=== PATIENT | female | born 1985 | race American Indian/Alaskan Native ===

== ENCOUNTER 2018-04-16 22:06 | Emergency (ER) | payer SELFPAY | END 2018-04-16 22:49 | disposition left against medical advice (07) | LOC: ED 22:06 ==

== ENCOUNTER 2019-05-15 11:31 | Emergency (ER) | payer SELFPAY ==
[2019-05-15] MEDS ORDERED: SODIUM CHLORIDE 0.9% 1000 ML 1,000 ML IV ONE ×2 (11:45→13:06)
[2019-05-15] MEDS ORDERED: ONDANSETRON 4 MG/2 ML INJ IV ONE ×2 (11:46→13:06)
--- NOTE | 2019-05-15 11:53 | Emergency Department Report ---
ED N/V/D HPI - General Chief complaint: Hyperglycemia Stated complaint: VOMITING Time Seen by Provider: 05/15/19 11:45 Source: patient, EMS Mode of arrival: Stretcher Limitations: No Limitations - History of Present Illness Initial comments: Ms. Clayton is a 34-year-old female with history of insulin-dependent diabetes who presents with nausea vomiting since last night. She denies any pain. She denies fever. She arrived via EMS. MD complaint: nausea, vomiting -: Gradual, Last night Associated Abdominal Pain: No Severity: moderate Consistency: constant Improves with: none Worsens with: none Context: other (History of diabetes) Associated Symptoms: denies other symptoms - Related Data Home Medications Medication Instructions Recorded Confirmed Last Taken Lisinopril [Zestril] 5 mg PO BID 05/15/19 05/15/19 05/13/19 Previous Rx's Medication Instructions Recorded Last Taken Type Promethazine [Phenergan] 25 mg PO Q6HR PRN #10 tab 05/15/19 Unknown Rx Allergies Allergy/AdvReac Type Severity Reaction Status Date / Time No Known Allergies Allergy Unverified 05/15/19 11:55 ED Review of Systems ROS: Stated complaint: VOMITING Other details as noted in HPI Comment: All other systems reviewed and negative Constitutional: denies: fever, malaise Respiratory: denies: cough Cardiovascular: denies: chest pain, palpitations Gastrointestinal: nausea. denies: abdominal pain ED Past Medical Hx - Past Medical History Previous Medical History?: No - Surgical History Past Surgical History?: No - Social History Smoking Status: Never Smoker Substance Use Type: None - Medications Home Medications: Home Medications Medication Instructions Recorded Confirmed Last Taken Type Lisinopril [Zestril] 5 mg PO BID 05/15/19 05/15/19 05/13/19 History Promethazine [Phenergan] 25 mg PO Q6HR PRN #10 tab 05/15/19 Unknown Rx ED Physical Exam - General Limitations: No Limitations General appearance: alert, in no apparent distress - Head Head exam: Present: atraumatic, normocephalic - Eye Eye exam: Present: normal appearance - ENT ENT exam: Present: mucous membranes dry - Neck Neck exam: Present: normal inspection, full ROM - Respiratory Respiratory exam: Present: normal lung sounds bilaterally. Absent: respiratory distress, wheezes, rales, rhonchi - Cardiovascular Cardiovascular Exam: Present: normal rhythm, tachycardia, normal heart sounds. Absent: systolic murmur, diastolic murmur, rubs, gallop - GI/Abdominal GI/Abdominal exam: Present: soft. Absent: distended, tenderness, guarding, rebound - Extremities Exam Extremities exam: Present: normal inspection - Neurological Exam Neurological exam: Present: alert, oriented X3 - Psychiatric Psychiatric exam: Present: normal affect, normal mood - Skin Skin exam: Present: warm, dry, intact, normal color. Absent: rash ED Course Vital Signs 05/15/19 05/15/19 05/15/19 11:40 11:53 12:00 Temperature 98.5 F Pulse Rate 113 H Respiratory Rate Blood Pressure Blood Pressure 143/102 [Left] O2 Sat by Pulse 99 100 Oximetry 05/15/19 05/15/19 05/15/19 12:16 12:30 12:50 Temperature Pulse Rate 114 H 120 H Respiratory 18 16 Rate Blood Pressure Blood Pressure [Left] O2 Sat by Pulse 96 100 97 Oximetry 05/15/19 05/15/19 05/15/19 13:00 13:16 13:30 Temperature Pulse Rate 116 H 115 H 113 H Respiratory 17 15 17 Rate Blood Pressure 165/110 Blood Pressure [Left] O2 Sat by Pulse 99 100 99 Oximetry 05/15/19 05/15/19 05/15/19 13:45 14:00 14:15 Temperature Pulse Rate 113 H 113 H 115 H Respiratory 17 15 19 Rate Blood Pressure 167/114 177/114 166/116 Blood Pressure [Left] O2 Sat by Pulse 100 100 99 Oximetry 05/15/19 05/15/19 05/15/19 14:30 14:45 15:00 Temperature Pulse Rate 115 H 116 H 115 H Respiratory 19 19 20 Rate Blood Pressure 172/119 176/116 162/117 Blood Pressure [Left] O2 Sat by Pulse 99 99 98 Oximetry 05/15/19 05/15/19 15:15 15:30 Temperature Pulse Rate 113 H 114 H Respiratory 16 18 Rate Blood Pressure 180/119 191/118 Blood Pressure [Left] O2 Sat by Pulse 100 99 Oximetry ED Medical Decision Making - Lab Data Result diagrams: 05/15/19 12:15 05/15/19 17:36 Laboratory Results - last 24 hr 04/02/20 04/02/20 04/02/20 11:45 12:10 12:15 WBC 8.6 RBC 5.86 H Hgb 13.5 Hct 42.2 MCV 72 L MCH 23 L MCHC 32 RDW 16.9 H Plt Count 337 Lymph % (Auto) 10.5 L [place] % (Auto) 2.7 Eos % (Auto) 0.0 Baso % (Auto) 0.5 Lymph # 0.9 L [place] # 0.2 Eos # 0.0 Baso # 0.0 Seg Neutrophils % 86.3 H Seg Neutrophils # 7.4 VBG pH Sodium 139 Potassium 3.7 Chloride 100.4 Carbon Dioxide 18 L Anion Gap 24 BUN 16 Creatinine 0.4 L Estimated GFR > 60 BUN/Creatinine Ratio 40 Glucose 292 H POC Glucose 258 H Calcium 9.6 HCG, Qual Urine Color Urine Turbidity Urine pH Ur Specific Volin Urine Protein Urine Glucose (UA) Urine Ketones Urine Blood Urine Nitrite Urine Bilirubin Urine Urobilinogen Ur Leukocyte Esterase Urine WBC (Auto) Urine RBC (Auto) U Epithel Cells (Auto) Urine Bacteria (Auto) Urine Mucus 05/15/19 05/15/19 05/15/19 12:15 13:02 17:02 WBC RBC Hgb Hct MCV MCH MCHC RDW Plt Count Lymph % (Auto) [place] % (Auto) Eos % (Auto) Baso % (Auto) Lymph # [place] # Eos # Baso # Seg Neutrophils % Seg Neutrophils # VBG pH Sodium Potassium Chloride Carbon Dioxide Anion Gap BUN Creatinine Estimated GFR BUN/Creatinine Ratio Glucose POC Glucose 225 H Calcium HCG, Qual Negative Urine Color Yellow Urine Turbidity Cloudy Urine pH 5.0 Ur Specific Volin 1.035 H Urine Protein 100 mg/dl Urine Glucose (UA) >=500 Urine Ketones 80 Urine Blood Mod Urine Nitrite Neg Urine Bilirubin Neg Urine Urobilinogen < 2.0 Ur Leukocyte Esterase Mod Urine WBC (Auto) 3.0 Urine RBC (Auto) 94.0 U Epithel Cells (Auto) 14.0 H Urine Bacteria (Auto) 2+ Urine Mucus 1+ 05/15/19 05/15/19 17:36 17:36 WBC RBC Hgb Hct MCV MCH MCHC RDW Plt Count Lymph % (Auto) [place] % (Auto) Eos % (Auto) Baso % (Auto) Lymph # [place] # Eos # Baso # Seg Neutrophils % Seg Neutrophils # VBG pH 7.393 Sodium 140 Potassium 3.6 Chloride 106.0 Carbon Dioxide 21 L Anion Gap 17 BUN 16 Creatinine 0.4 L Estimated GFR > 60 BUN/Creatinine Ratio 40 Glucose 227 H POC Glucose Calcium 8.6 HCG, Qual Urine Color Urine Turbidity Urine pH Ur Specific Volin Urine Protein Urine Glucose (UA) Urine Ketones Urine Blood Urine Nitrite Urine Bilirubin Urine Urobilinogen Ur Leukocyte Esterase Urine WBC (Auto) Urine RBC (Auto) U Epithel Cells (Auto) Urine Bacteria (Auto) Urine Mucus - Medical Decision Making Mrs. Clayton presents with hyperglycemia nausea vomiting work-up revealed ketonuria anion gap 24 sodium bicarbonate 18 blood glucose 225 after fluid therapy. Bicarbonate increased, anion gap decreased after treatment throughout emergency department. Patient does have needles and insulin to administer her self at home. Prescribed promethazine for nausea vomiting. Asymptomatic hypertensive urgency. Patient did not take her medicine today likely due to nausea Critical care attestation.: If time is entered above; I have spent that time in minutes in the direct care of this critically ill patient, excluding procedure time. ED Disposition Clinical Impression: Hyperglycemia due to diabetes mellitus, Ketosis due to diabetes, Nausea Disposition: DC-01 TO HOME OR SELFCARE Is pt being admited?: No Does the pt Need Aspirin: No Condition: Stable Additional Instructions: Please return to the emergency department if your symptoms worsen. Prescriptions: Promethazine [Phenergan] 25 mg PO Q6HR PRN #10 tab PRN Reason: Nausea Referrals: CASSIDY HAWTHORNE MD [Staff Physician] - 3-5 Days
[2019-05-15 12:39] LABS: Basophils % (Auto) 0.5 % (0.0-1.8); Hematocrit 42.2 % (30.3-42.9); Hemoglobin 13.5 gm/dl (10.1-14.3); Lymphocytes # (Auto) 0.9 K/mm3 (1.2-5.4); Lymphocytes % (Auto) 10.5 % (13.4-35.0); Mean Corpuscular HGB Conc 32 % (30-34); Mean Corpuscular Volume 72 fl (79-97); Monocytes # (Auto) 0.2 K/mm3 (0.0-0.8); Monocytes % (Auto) 2.7 % (0.0-7.3); Platelet Count 337 K/mm3 (140-440); Red Blood Count 5.86 M/mm3 (3.65-5.03); Red Cell Distribution Width 16.9 % (13.2-15.2)
[2019-05-15 12:58] LABS: BUN/Creatinine Ratio 40; Blood Urea Nitrogen 16 mg/dL (7-17); Calcium 9.6 mg/dL (8.4-10.2); Hemolysis Index 11
[2019-05-15 14:21] LABS: Bacteria,Urine 2+ /HPF (Negative); Bilirubin,Urine NEG (Negative); Blood,Urine MOD (Negative); Color,Urine Yellow (Yellow); Mucus,Urine 1+ /HPF; Urobilinogen,Urine < 2.0 mg/dL (<2.0)
[2019-05-15 18:12] LABS: BUN/Creatinine Ratio 40; Blood Urea Nitrogen 16 mg/dL (7-17); Calcium 8.6 mg/dL (8.4-10.2); Hemolysis Index 13
[2019-05-15 19:16] VITALS: BP 170/121
== END 2019-05-15 19:19 | disposition home or self-care (01) ==
LOC: ED 11:31
DX: E13.10 Other specified diabetes mellitus with ketoacidosis without coma (principal); E11.65 Type 2 diabetes mellitus with hyperglycemia; E11.10 Type 2 diabetes mellitus with ketoacidosis without coma
CPT/HCPCS: 36415; 80048; 81001; 82805; 82962; 84703; 85025; 96361; 96374; 96376; 99284; J2405; J7030

== ENCOUNTER 2019-12-20 16:26 | Emergency (ER) | payer SELFPAY ==
--- NOTE | 2019-12-20 17:00 | Event Note ---
ED Screening Note Date of service: 12/20/19 Time: 16:59 ED Screening Note: 34-year-old -[place] female presents to the emergency room for nausea vomiting weakness dizziness and states that her blood sugars have been running high. Patient has diabetes type 2. She is currently followed by diabetic clinic but does not have a primary care provider. This initial assessment/diagnostic orders/clinical plan/treatment(s) is/are subject to change based on patients health status, clinical progression and re- assessment by fellow clinical providers in the ED. Further treatment and workup at subsequent clinical providers discretion. Patient/guardian urged not to elope from the ED as their condition may be serious if not clinically assessed and managed. Initial orders include:
[2019-12-20 17:30] LABS: Basophils # (Auto) 0.1 K/mm3 (0.0-0.1); Basophils % (Auto) 1.3 % (0.0-1.8); Eosinophils # (Auto) 0.3 K/mm3 (0.0-0.4); Eosinophils % (Auto) 4.3 % (0.0-4.3); Hematocrit 39.3 % (30.3-42.9); Hemoglobin 12.5 gm/dl (10.1-14.3); Lymphocytes # (Auto) 2.3 K/mm3 (1.2-5.4); Lymphocytes % (Auto) 29.5 % (13.4-35.0); Mean Corpuscular HGB Conc 32 % (30-34); Mean Corpuscular Volume 73 fl (79-97); Monocytes # (Auto) 0.4 K/mm3 (0.0-0.8); Monocytes % (Auto) 4.8 % (0.0-7.3); Platelet Count 302 K/mm3 (140-440); Red Blood Count 5.37 M/mm3 (3.65-5.03); Red Cell Distribution Width 17.9 % (13.2-15.2)
[2019-12-20 17:46] LABS: HCG Qualitative,Urine Negative (Negative)
[2019-12-20 17:48] LABS: Alanine Aminotransferase 10 units/L (7-56); Albumin 3.8 g/dL (3.9-5); Blood Urea Nitrogen 14 mg/dL (7-17); Calcium 9.5 mg/dL (8.4-10.2); Hemolysis Index 28
[2019-12-20 17:54] LABS: BUN/Creatinine Ratio 35
[2019-12-20 17:55] LABS: Bilirubin,Direct < 0.2 mg/dL (0-0.2)
[2019-12-20] MEDS ORDERED: SODIUM CHLORIDE 0.9% 1000 ML 1,000 ML IV ONE (18:24)
[2019-12-20] MEDS ORDERED: ONDANSETRON 4 MG/2 ML INJ IV ONE (18:24)
--- NOTE | 2019-12-20 18:26 | Emergency Department Report ---
HPI - General Chief Complaint: Nausea/Vomiting/Diarrhea Time Seen by Provider: 12/20/19 18:16 - HPI HPI: This is a 34-year-old female presents to the emergency department from home with a complaint of a 1 week history of nausea and vomiting that has now caused her to have some generalized weakness. The patient also says that her blood sugar has been high despite alleged compliance with her insulin 70/30, which she takes 33 units in the morning and 16 units at night. She is otherwise not taken anything for symptoms prior to presentation. No recent travel or sick contacts at home. No known aggravating or alleviating factors. She denies any fever, abdominal pain, dysuria, vaginal bleeding or discharge, chest pain or shortness of breath. She does not have any primary care physician. ED Past Medical Hx - Past Medical History Previous Medical History?: Yes Hx Hypertension: Yes Hx Diabetes: Yes Additional medical history: Diabetic - Surgical History Past Surgical History?: Yes Hx Appendectomy: Yes Additional Surgical History: Left leg surgery with instrumentation - Social History Smoking Status: Never Smoker Substance Use Type: Prescribed - Medications Home Medications: Home Medications Medication Instructions Recorded Confirmed Last Taken Type Lisinopril [Zestril] 5 mg PO BID 05/15/19 05/15/19 05/13/19 History Promethazine [Phenergan] 25 mg PO Q6HR PRN #10 tab 05/15/19 Unknown Rx Fluconazole (Nf) [Diflucan TAB] 150 mg PO ONCE #1 tablet 06/27/19 Unknown Rx Nitrofurantoin [place]/M-Cryst 100 mg PO Q12HR #14 capsule 06/27/19 Unknown Rx [Macrobid CAP] Ondansetron [Zofran ODT TAB] 4 mg PO Q8HR PRN #15 tab.rapdis 12/20/19 Unknown Rx ED Review of Systems ROS: Stated complaint: N/V Other details as noted in HPI Comment: All other systems reviewed and negative Constitutional: weakness. denies: chills, fever Eyes: denies: eye pain, vision change ENT: denies: ear pain, throat pain Respiratory: denies: cough, shortness of breath Cardiovascular: denies: chest pain, palpitations Gastrointestinal: nausea, vomiting. denies: abdominal pain Genitourinary: denies: dysuria, discharge Musculoskeletal: denies: back pain, arthralgia Skin: denies: rash, lesions Neurological: denies: headache, weakness Physical Exam - Physical Exam Vital Signs: Vital Signs 12/20/19 16:33 Temperature 98.7 F Pulse Rate 114 H Respiratory 18 Rate Blood Pressure 123/104 O2 Sat by Pulse 100 Oximetry Physical Exam: GENERAL: The patient is well-developed well-nourished. HENT: Normocephalic. Atraumatic. Patient has moist mucous membranes. EYES: Extraocular motions are intact. NECK: Supple. Trachea is midline. CHEST/LUNGS: Clear to auscultation. There is no respiratory distress noted. HEART/CARDIOVASCULAR: Regular. There is mild tachycardia. There is no murmur. ABDOMEN: Abdomen is soft, nontender. Patient has normal bowel sounds. SKIN: Skin is warm and dry. NEURO: The patient is awake, alert, and oriented. The patient is cooperative. Normal speech. Cranial nerves II through XII grossly intact. MUSCULOSKELETAL: There is no tenderness or deformity. There is no limitation range of motion. ED Course Vital Signs 12/20/19 16:33 Temperature 98.7 F Pulse Rate 114 H Respiratory 18 Rate Blood Pressure 123/104 O2 Sat by Pulse 100 Oximetry - Reevaluation(s) Reevaluation #1: 12/20/19 22:47 Lab Results 12/20/19 12/20/19 12/20/19 Range/Units 16:52 17:09 17:13 WBC 7.9 (4.5-11.0) K/mm3 RBC 5.37 H (3.65-5.03) M/mm3 Hgb 12.5 (10.1-14.3) gm/dl Hct 39.3 (30.3-42.9) % MCV 73 L (79-97) fl MCH 23 L (28-32) pg MCHC 32 (30-34) % RDW 17.9 H (13.2-15.2) % Plt Count 302 (140-440) K/mm3 Lymph % (Auto) 29.5 (13.4-35.0) % [place] % (Auto) 4.8 (0.0-7.3) % Eos % (Auto) 4.3 (0.0-4.3) % Baso % (Auto) 1.3 (0.0-1.8) % Lymph # (Auto) 2.3 (1.2-5.4) K/mm3 [place] # (Auto) 0.4 (0.0-0.8) K/mm3 Eos # (Auto) 0.3 (0.0-0.4) K/mm3 Baso # (Auto) 0.1 (0.0-0.1) K/mm3 Seg Neutrophils % 60.1 (40.0-70.0) % Seg Neutrophils # 4.8 (1.8-7.7) K/mm3 VBG pH (7.320-7.420) Sodium (137-145) mmol/L Potassium (3.6-5.0) mmol/L Chloride (98-107) mmol/L Carbon Dioxide (22-30) mmol/L Anion Gap mmol/L BUN (7-17) mg/dL Creatinine (0.6-1.2) mg/dL Estimated GFR ml/min BUN/Creatinine Ratio % Glucose (65-100) mg/dL POC Glucose 380 H (70-105) mg/dL Calcium (8.4-10.2) mg/dL Phosphorus (2.5-4.5) mg/dL Magnesium (1.7-2.3) mg/dL Total Bilirubin (0.1-1.2) mg/dL Direct Bilirubin (0-0.2) mg/dL Indirect Bilirubin mg/dL AST (5-40) units/L ALT (7-56) units/L Alkaline Phosphatase (35-129) units/L Total Protein (6.3-8.2) g/dL Albumin (3.9-5) g/dL Albumin/Globulin Ratio % Lipase (13-60) units/L Urine HCG, Qual Negative (Negative) 12/20/19 12/20/19 12/20/19 Range/Units 17:13 17:13 19:50 WBC (4.5-11.0) K/mm3 RBC (3.65-5.03) M/mm3 Hgb (10.1-14.3) gm/dl Hct (30.3-42.9) % MCV (79-97) fl MCH (28-32) pg MCHC (30-34) % RDW (13.2-15.2) % Plt Count (140-440) K/mm3 Lymph % (Auto) (13.4-35.0) % [place] % (Auto) (0.0-7.3) % Eos % (Auto) (0.0-4.3) % Baso % (Auto) (0.0-1.8) % Lymph # (Auto) (1.2-5.4) K/mm3 [place] # (Auto) (0.0-0.8) K/mm3 Eos # (Auto) (0.0-0.4) K/mm3 Baso # (Auto) (0.0-0.1) K/mm3 Seg Neutrophils % (40.0-70.0) % Seg Neutrophils # (1.8-7.7) K/mm3 VBG pH 7.401 (7.320-7.420) Sodium 132 L (137-145) mmol/L Potassium 3.7 (3.6-5.0) mmol/L Chloride 98.1 (98-107) mmol/L Carbon Dioxide 24 (22-30) mmol/L Anion Gap 14 mmol/L BUN 14 (7-17) mg/dL Creatinine 0.4 L (0.6-1.2) mg/dL Estimated GFR > 60 ml/min BUN/Creatinine Ratio 35 % Glucose 332 H (65-100) mg/dL POC Glucose 315 H (70-105) mg/dL Calcium 9.5 (8.4-10.2) mg/dL Phosphorus 3.00 (2.5-4.5) mg/dL Magnesium 1.90 (1.7-2.3) mg/dL Total Bilirubin 0.30 (0.1-1.2) mg/dL Direct Bilirubin < 0.2 (0-0.2) mg/dL Indirect Bilirubin 0.1 mg/dL AST 16 (5-40) units/L ALT 10 (7-56) units/L Alkaline Phosphatase 92 (35-129) units/L Total Protein 7.9 (6.3-8.2) g/dL Albumin 3.8 L (3.9-5) g/dL Albumin/Globulin Ratio 0.9 % Lipase 19 (13-60) units/L Urine HCG, Qual (Negative) Reevaluation #2: 12/20/19 22:47 Vital Signs 12/20/19 12/20/19 16:33 22:02 Temperature 98.7 F Pulse Rate 114 H 102 H Respiratory 18 20 Rate Blood Pressure 123/104 Blood Pressure 150/102 [Right] O2 Sat by Pulse 100 100 Oximetry ED Medical Decision Making - Lab Data Result diagrams: 12/20/19 17:13 12/20/19 17:13 - Medical Decision Making This patient presents with nausea and vomiting and hyperglycemia despite alleged compliance with her insulin. On examination the patient does not appear in any acute distress. Normal sounding heart and lungs to auscultation. She does not have any focal, motor or sensory deficits and her cranial nerves are intact. Patient's vital signs were reassuring throughout her ED course including being afebrile. The labs did show some hyperglycemia with a serum blood sugar of about 330. However she does not appear in diabetic ketoacidosis as there is no elevation in her anion gap. She was given a dose of Zofran, a liter of IV fluid resuscitation, and 5 units of IV insulin. Her blood sugar came down to about 220 on Accu-Chek. The patient was able to pass oral challenge and is feeling improved. She was seen ambulatory in the emergency department and both appears and feels stable. She will be discharged home with Zofran ODT and referrals for primary care physicians and clinics in the area. She will return to the ER with any worsening of her symptoms or with any acute distress. Critical Care Time: No Critical care attestation.: If time is entered above; I have spent that time in minutes in the direct care of this critically ill patient, excluding procedure time. ED Disposition Clinical Impression: Hyperglycemia, Gastroparesis Nausea & vomiting Qualifiers: Vomiting type: unspecified Vomiting Intractability: non-intractable Qualified Code(s): R11.2 - Nausea with vomiting, unspecified Disposition: DC-01 TO HOME OR SELFCARE Is pt being admited?: No Condition: Stable Instructions: Hyperglycemia, Nausea and Vomiting, Adult, Gastroparesis Additional Instructions: Please follow-up with a primary care physician in the next few days. I am giving you multiple referrals for local primary care physicians and clinics. Increase your oral rehydration. Continue with your diabetes medications. Try and stay away from foods that are high in sugar, carbohydrates and starches. Keep a blood sugar log. Return to the emergency department with any worsening of your symptoms, new or concerning symptoms not addressed during this current emergency department visit, or with any acute distress. Prescriptions: Ondansetron [Zofran ODT TAB] 4 mg PO Q8HR PRN #15 tab.rapdis PRN Reason: Nausea Referrals: PRIMARY CARE, [Primary Care Provider] - 2-3 Days CASSIDY HAWTHORNE MD [Staff Physician] - 2-3 Days MOON FAIR MD [Staff Physician] - 2-3 Days KYLE TOLEDO MD [Staff Physician] - 2-3 Days [facility] [Provider Group] - 2-3 Days Time of Disposition: 21:29
[2019-12-20] MEDS ORDERED: INSULIN REGULAR, HUMAN 100 UNIT/ML 3ML VIAL IV SCH (19:00)
[2019-12-20] MEDS ORDERED: INSULIN REGULAR, HUMAN 100 UNITS/1 ML ONE (19:30)
[2019-12-20 22:03] VITALS: BP 150/102
== END 2019-12-20 22:04 | disposition home or self-care (01) ==
LOC: ED 16:26
DX: E11.43 Type 2 diabetes mellitus with diabetic autonomic (poly)neuropathy (principal); K31.84 Gastroparesis; R11.2 Nausea with vomiting, unspecified; I10 Essential (primary) hypertension; E11.65 Type 2 diabetes mellitus with hyperglycemia; Z79.899 Other long term (current) drug therapy; Z98.890 Other specified postprocedural states; Z90.49 Acquired absence of other specified parts of digestive tract
CPT/HCPCS: 36415; 80048; 80076; 81025; 82805; 82962; 83690; 83735; 84100; 85025; 96361; 96374; 96375; 99284; J2405; J7030; J1815

== ENCOUNTER 2020-01-14 12:40 | Emergency (ER) | payer MEDICARE ==
[2020-01-14] MEDS ORDERED: ONDANSETRON 4 MG/2 ML INJ IV ONE (12:55)
[2020-01-14] MEDS ORDERED: SODIUM CHLORIDE 0.9% 1000 ML 1,000 ML IV ONE ×2 (12:55→12:57)
[2020-01-14] MEDS ORDERED: MORPHINE 4 MG/1 ML INJ IV ONE (12:55)
--- NOTE | 2020-01-14 13:00 | Emergency Department Report ---
ED N/V/D HPI - General Stated complaint: HIGH BLOOD SUGAR Time Seen by Provider: 01/14/20 12:55 Source: patient, EMS, old records reviewed Limitations: No Limitations - History of Present Illness Initial comments: Chief complaint: High blood sugar HPI this is a 34-year-old female with history of insulin-dependent diabetes, diabetic gastroparesis hypertension who presents with 1 day of weakness nausea vomiting. Patient admits to being noncompliant with diabetic diet during the holidays. She takes 35 units of 70/30 insulin in the AM. She takes 16 units in the evening. She denies abdominal pain. She has mild headache. Global typical headache dull throbbing. She denies fever, chest pain. She denies hematemesis. Patient received IV fluid via EMS prior to arrival. Patient arrived via EMS. Blood glucose 394 according to EMS. MD complaint: nausea, vomiting -: Gradual, days(s) (1) Description of Vomiting: food contents Associated Abdominal Pain: No Radiation: none Severity: moderate Consistency: constant Improves with: none Worsens with: none Context: other (History of diabetic gastroparesis) Associated Symptoms: headaches - Related Data Home Medications Medication Instructions Recorded Confirmed Last Taken Lisinopril [Zestril] 5 mg PO BID 05/15/19 05/15/19 05/13/19 Previous Rx's Medication Instructions Recorded Last Taken Type Promethazine [Phenergan] 25 mg PO Q6HR PRN #10 tab 05/15/19 Unknown Rx Fluconazole (Nf) [Diflucan TAB] 150 mg PO ONCE #1 tablet 06/27/19 Unknown Rx Nitrofurantoin [place]/M-Cryst 100 mg PO Q12HR #14 capsule 06/27/19 Unknown Rx [Macrobid CAP] Ondansetron [Zofran ODT TAB] 4 mg PO Q8HR PRN #15 tab.rapdis 12/20/19 Unknown Rx Ondansetron [Zofran Odt] 4 mg PO Q8HR PRN #10 tab.rapdis 01/14/20 Unknown Rx Allergies Allergy/AdvReac Type Severity Reaction Status Date / Time metformin Allergy Unknown Verified 01/14/20 13:27 ED Review of Systems ROS: Stated complaint: HIGH BLOOD SUGAR Other details as noted in HPI Comment: All other systems reviewed and negative Constitutional: denies: fever, malaise Respiratory: denies: cough, shortness of breath Gastrointestinal: nausea, vomiting. denies: abdominal pain, diarrhea ED Past Medical Hx - Past Medical History Previous Medical History?: Yes Hx Hypertension: Yes Hx Diabetes: Yes Additional medical history: Diabetic - Surgical History Hx Appendectomy: Yes Additional Surgical History: Left leg surgery with instrumentation - Social History Smoking Status: Never Smoker Substance Use Type: None - Medications Home Medications: Home Medications Medication Instructions Recorded Confirmed Last Taken Type Lisinopril [Zestril] 5 mg PO BID 05/15/19 05/15/19 05/13/19 History Promethazine [Phenergan] 25 mg PO Q6HR PRN #10 tab 05/15/19 Unknown Rx Fluconazole (Nf) [Diflucan TAB] 150 mg PO ONCE #1 tablet 06/27/19 Unknown Rx Nitrofurantoin [place]/M-Cryst 100 mg PO Q12HR #14 capsule 06/27/19 Unknown Rx [Macrobid CAP] Ondansetron [Zofran ODT TAB] 4 mg PO Q8HR PRN #15 tab.rapdis 12/20/19 Unknown Rx Ondansetron [Zofran Odt] 4 mg PO Q8HR PRN #10 tab.rapdis 01/14/20 Unknown Rx ED Physical Exam - General Limitations: No Limitations General appearance: alert, in no apparent distress - Head Head exam: Present: atraumatic, normocephalic - Eye Eye exam: Present: normal appearance - ENT ENT exam: Present: mucous membranes dry, other - Neck Neck exam: Present: normal inspection, full ROM - Respiratory Respiratory exam: Present: normal lung sounds bilaterally. Absent: respiratory distress, wheezes, rales, rhonchi - Cardiovascular Cardiovascular Exam: Present: regular rate, normal rhythm, normal heart sounds. Absent: systolic murmur, diastolic murmur, rubs, gallop - GI/Abdominal GI/Abdominal exam: Present: soft, normal bowel sounds. Absent: distended, tenderness, guarding, rebound - Extremities Exam Extremities exam: Present: normal inspection - Neurological Exam Neurological exam: Present: alert, oriented X3 - Psychiatric Psychiatric exam: Present: normal affect, normal mood - Skin Skin exam: Present: warm, dry, intact, normal color. Absent: rash ED Course Vital Signs 01/14/20 13:49 Temperature 97.6 F Pulse Rate 112 H Respiratory 18 Rate Blood Pressure 151/98 [Left] O2 Sat by Pulse 100 Oximetry ED Medical Decision Making - Lab Data Result diagrams: 01/14/20 13:11 01/14/20 13:11 - Medical Decision Making 1. Hyperglycemia due to dietary indiscretion: Patient did not have evidence of DKA. She received IV fluid therapy as well as regular insulin. Repeat blood sugar 159. 2. Reported nausea vomiting with history of diabetic gastroparesis. Patient did not have vomiting here in the emergency department. Prescribed Zofran 3. Tension headache: Patient declined pain medication. Symptoms were mild. Critical care attestation.: If time is entered above; I have spent that time in minutes in the direct care of this critically ill patient, excluding procedure time. ED Disposition Clinical Impression: Acute hyperglycemia, Diabetic gastroparesis Disposition: - TO HOME OR SELFCARE Is pt being admited?: No Does the pt Need Aspirin: No Condition: Stable Instructions: Diabetes Mellitus Type 2 in Adults (ED) Prescriptions: Ondansetron [Zofran Odt] 4 mg PO Q8HR PRN #10 tab.rapdis PRN Reason: Nausea Referrals: PRIMARY CARE, [Primary Care Provider] - 3-5 Days
[2020-01-14] MEDS ORDERED: INSULIN REGULAR, HUMAN 100 UNIT/ML 3ML VIAL IV ONE (13:25)
[2020-01-14] MEDS ORDERED: INSULIN REGULAR, HUMAN 100 UNITS/1 ML ONE (13:30)
[2020-01-14 13:38] LABS: Basophils % (Auto) 0.5 % (0.0-1.8); Eosinophils % (Auto) 0.6 % (0.0-4.3); Hematocrit 38.3 % (30.3-42.9); Hemoglobin 12.2 gm/dl (10.1-14.3); Lymphocytes # (Auto) 1.5 K/mm3 (1.2-5.4); Lymphocytes % (Auto) 18.7 % (13.4-35.0); Mean Corpuscular HGB Conc 32 % (30-34); Mean Corpuscular Volume 73 fl (79-97); Monocytes # (Auto) 0.4 K/mm3 (0.0-0.8); Monocytes % (Auto) 5.3 % (0.0-7.3); Platelet Count 306 K/mm3 (140-440); Red Blood Count 5.26 M/mm3 (3.65-5.03); Red Cell Distribution Width 18.7 % (13.2-15.2)
[2020-01-14 13:45] LABS: Blood Urea Nitrogen 20 mg/dL (7-17); Calcium 9.3 mg/dL (8.4-10.2); Hemolysis Index 13
[2020-01-14 13:50] VITALS: BP 151/98
[2020-01-14 13:51] LABS: BUN/Creatinine Ratio 33
== END 2020-01-14 16:32 | disposition home or self-care (01) ==
LOC: ED 12:40
DX: E11.65 Type 2 diabetes mellitus with hyperglycemia (principal); E11.43 Type 2 diabetes mellitus with diabetic autonomic (poly)neuropathy; K31.84 Gastroparesis; I10 Essential (primary) hypertension; Z98.890 Other specified postprocedural states; Z79.899 Other long term (current) drug therapy; Z88.8 Allergy status to other drugs, medicaments and biological substances
CPT/HCPCS: 36415; 80048; 82805; 82962; 85025; 96361; 96374; 96375; 99284; J2405; J7030; J1815; J2270

== ENCOUNTER 2020-02-19 18:20 | Emergency (ER) | payer MEDICARE ==
[2020-02-19 18:26] VITALS: BP 152/96
[2020-02-19] MEDS ORDERED: KETOROLAC 30 MG/1 ML INJ IV ONE (18:39)
[2020-02-19] MEDS ORDERED: ONDANSETRON 4 MG/2 ML INJ IV ONE ×2 (18:39→20:05)
[2020-02-19] MEDS ORDERED: SODIUM CHLORIDE 0.9% 1000 ML 1,000 ML IV ONE (18:39)
--- NOTE | 2020-02-19 18:41 | Emergency Department Report ---
ED Abdominal Pain HPI - General Chief Complaint: Abdominal Pain Stated Complaint: ABDOMINAL PAIN Time Seen by Provider: 02/19/20 18:30 Source: patient Mode of arrival: Ambulatory Limitations: No Limitations - History of Present Illness Initial Comments: 34 yr old female with pmhx of type 1 DM, DM gastroparesis and HTN presents to ED via EMS with c/o right flank pain. She states her symptoms started about 3 days ago. She describes it as an intermittent, sharp pain that non radiating. She states its sometimes worse with cough and when she moves. She reports associated urinary frequency, constipation (last nl BM was sunday), nausea and vomiting. She denies any fever, chills, chest pain SOB, dysuria, hematuria, or any other associated symptoms. MD Complaint: flank pain (Right flank pain) -: Gradual, days(s) (4) Location: R flank Radiation: none Migration to: no migration Severity: moderate Quality: sharp Consistency: intermittent Improves With: nothing Worsens With: other (sometimes cough, sometimes movement) Associated Symptoms: nausea, vomiting - Related Data Home Medications Medication Instructions Recorded Confirmed Last Taken Lisinopril [Zestril] 5 mg PO BID 05/15/19 05/15/19 05/13/19 Previous Rx's Medication Instructions Recorded Last Taken Type Promethazine [Phenergan] 25 mg PO Q6HR PRN #10 tab 05/15/19 Unknown Rx Fluconazole (Nf) [Diflucan TAB] 150 mg PO ONCE #1 tablet 06/27/19 Unknown Rx Nitrofurantoin [place]/M-Cryst 100 mg PO Q12HR #14 capsule 06/27/19 Unknown Rx [Macrobid CAP] Ondansetron [Zofran Odt] 4 mg PO Q8HR PRN #10 tab.rapdis 01/14/20 Unknown Rx Acetaminophen/Codeine [Tylenol 1 tab PO Q4HR PRN #12 tablet 02/19/20 Unknown Rx /Codeine # 3 tab] Ondansetron [Zofran ODT TAB] 4 mg PO Q8HR PRN #15 tab.rapdis 02/19/20 Unknown Rx Allergies Allergy/AdvReac Type Severity Reaction Status Date / Time No Known Allergies Allergy Unverified 02/19/20 18:22 ED Review of Systems ROS: Stated complaint: ABDOMINAL PAIN Other details as noted in HPI Comment: All other systems reviewed and negative Constitutional: denies: chills, fever ENT: denies: ear pain, throat pain Respiratory: denies: cough, shortness of breath, wheezing Cardiovascular: denies: chest pain, palpitations, dyspnea on exertion Gastrointestinal: nausea, vomiting, other (right flank pain ) Genitourinary: frequency Musculoskeletal: denies: back pain Neurological: denies: headache, weakness, paresthesias Psychiatric: denies: anxiety, depression Hematological/Lymphatic: denies: easy bleeding, easy bruising ED Past Medical Hx - Past Medical History Hx Hypertension: Yes Hx Diabetes: Yes Additional medical history: Diabetic - Surgical History Hx Appendectomy: Yes Additional Surgical History: Left leg surgery with instrumentation - Social History Smoking Status: Never Smoker Substance Use Type: None - Medications Home Medications: Home Medications Medication Instructions Recorded Confirmed Last Taken Type Lisinopril [Zestril] 5 mg PO BID 05/15/19 05/15/19 05/13/19 History Promethazine [Phenergan] 25 mg PO Q6HR PRN #10 tab 05/15/19 Unknown Rx Fluconazole (Nf) [Diflucan TAB] 150 mg PO ONCE #1 tablet 06/27/19 Unknown Rx Nitrofurantoin [place]/M-Cryst 100 mg PO Q12HR #14 capsule 06/27/19 Unknown Rx [Macrobid CAP] Ondansetron [Zofran Odt] 4 mg PO Q8HR PRN #10 tab.rapdis 01/14/20 Unknown Rx Acetaminophen/Codeine [Tylenol 1 tab PO Q4HR PRN #12 tablet 02/19/20 Unknown Rx /Codeine # 3 tab] Ondansetron [Zofran ODT TAB] 4 mg PO Q8HR PRN #15 tab.rapdis 02/19/20 Unknown Rx ED Physical Exam - General Limitations: No Limitations General appearance: alert - Head Head exam: Present: atraumatic, normocephalic, normal inspection - Eye Eye exam: Present: normal appearance, PERRL, EOMI Pupils: Present: normal accommodation - Neck Neck exam: Present: normal inspection. Absent: meningismus - Respiratory Respiratory exam: Present: normal lung sounds bilaterally. Absent: respiratory distress - Cardiovascular Cardiovascular Exam: Present: regular rate, normal rhythm, normal heart sounds - GI/Abdominal GI/Abdominal exam: Present: soft. Absent: tenderness - Back Exam Back exam: Present: normal inspection, CVA tenderness (R) (mild ) - Neurological Exam Neurological exam: Present: alert, oriented X3, CN II-XII intact, normal gait - Psychiatric Psychiatric exam: Present: normal affect, normal mood - Skin Skin exam: Present: intact ED Course Vital Signs 02/19/20 02/19/20 18:25 21:42 Temperature 98.0 F Pulse Rate 115 H Respiratory 18 16 Rate Blood Pressure 152/96 O2 Sat by Pulse 100 Oximetry ED Medical Decision Making - Lab Data Result diagrams: 02/19/20 19:21 02/19/20 19:21 - Radiology Data Patient: LINDA MARTINEZ MR#: [id number] : 1985 Acct:[id number] Age/Sex: 34 / F ADM Date: 02/19/20 Loc: ED Attending Dr: Ordering Physician: DIONICIO GATICA Date of Service: 02/19/20 Procedure(s): CT abdomen pelvis wo con Accession Number(s): [id number] cc: DIONICIO GATICA CT OF THE ABDOMEN AND PELVIS WITHOUT CONTRAST INDICATION / CLINICAL INFORMATION: Right flank pain. TECHNIQUE: All CT scans at this location are performed using CT dose reduction for ALARA by means of automated exposure control. COMPARISON: None available. FINDINGS: ABDOMEN: There is a 1 mm nonobstructive calculus in the lower pole of the left kidney. I see no evidence of hydronephrosis, perinephric soft tissue stranding or renal mass. There is a 2 cm calculus in the gallbladder fundus. The gallbladder is normal in size without wall thickening or bile duct dilatation. The liver, spleen, pancreas, adrenal glands and bowel are normal no adenopathy is seen. The lung bases are clear. PELVIS: The distal ureters and urinary bladder are normal. The uterus and adnexal regions are unremarkable. I see no evidence of diverticulitis or appendicitis. No abnormal mass or fluid collection is seen. There is no evidence of hernia. No acute osseous abnormality is seen. IMPRESSION: 1. [address] evidence of acute cholecystitis. 2. Tiny nonobstructive left renal calculus. Signer Name: Parker Rosado MD Signed: 02/19/2020 8:43 PM Workstation Name: [id number] Transcribed By: RT Dictated By: Parker Rosado MD Electronically Authenticated By: Parker Rosado MD Signed Date/Time: 02/19/202042 DD/ 37 TD/TT: Patient: LINDA MARTINEZ MR#: [id number] : 1985 Acct:[id number] Age/Sex: 34 / F ADM Date: 02/19/20 Loc: ED Attending Dr: Ordering Physician: DIONICIO GATICA Date of Service: 02/19/20 Procedure(s): XR chest routine 2V Accession Number(s): [id number] cc: DIONICIO GATICA Fluoro Time In Minutes: CHEST 2 VIEWS INDICATION / CLINICAL INFORMATION: Abdominal pain radiating to the right flank starting yesterday. Nausea and vomiting. COMPARISON: None available. FINDINGS: SUPPORT DEVICES: None. HEART / MEDIASTINUM: The heart size and pulmonary vasculature are normal. LUNGS / PLEURA: No significant pulmonary or pleural abnormality. No pneumothorax. ADDITIONAL FINDINGS: The visualized upper abdomen is unremarkable. IMPRESSION: No acute findings. Signer Name: Parker Rosado MD Signed: 02/19/2020 8:32 PM Workstation Name: [id number] Transcribed By: RT Dictated By: Parker Rosado MD Electronically Authenticated By: Parker Rosado MD Signed Date/Time: 02/19/202031 DD/ 30 TD/TT: - Medical Decision Making 34 yr old female with pmhx of type 1 DM, DM gastroparesis and HTN presents to ED via EMS with c/o right flank pain. She states her symptoms started about 3 days ago. She describes it as an intermittent, sharp pain that non radiating. She states its sometimes worse with cough and when she moves. She reports associated urinary frequency, constipation (last nl BM was sunday), nausea and vomiting. She denies any fever, chills, chest pain SOB, dysuria, hematuria, or any other associated symptoms. CT abdomen pelvis shows 2 cm gallstone, and left intrarenal stones but otherwise no ureteral stone or any other acute abnormalities. Chest x-ray negative for anything acute. Labs/UA reviewed and unremarkable. No evidence of DKA. Patient feeling better after IV fluids, Toradol, Zofran and morphine. Patient currently does not appear to be in any distress, she is not toxic or ill-appeari ng. No further work-up, emergent specialist consult or admission indicated at this time. Discussed CT and lab results with patient. Recommend follow-up with her primary care doctor and/or general surgeon. Patient was stable at time of discharge. Critical care attestation.: If time is entered above; I have spent that time in minutes in the direct care of this critically ill patient, excluding procedure time. ED Disposition Clinical Impression: Acute right flank pain, Gallstone Disposition: DC-01 TO HOME OR SELFCARE Is pt being admited?: No Does the pt Need Aspirin: No Condition: Stable Instructions: Cholelithiasis, [id number], Flank Pain, Adult, Abdominal Pain (ED) Additional Instructions: Take the zofran and tylenol [address] does show that you have gal lstone which could be causing your pain and so you should follow up with general surgeon listed on your d/c instructions. I also recommend close f/u with your PCP. Return to ED if symptoms worsens or changes. Prescriptions: Acetaminophen/Codeine [Tylenol /Codeine # 3 tab] 1 tab PO Q4HR PRN #12 tablet PRN Reason: Pain Ondansetron [Zofran ODT TAB] 4 mg PO Q8HR PRN #15 tab.rapdis PRN Reason: Nausea Referrals: PRIMARY CARE, [Primary Care Provider] - 3-5 Days CASSIDY HAWTHORNE MD [Staff Physician] - 3-5 Days LUIS FERNANDO MACKENZIE MD [Staff Physician] - 3-5 Days Time of Disposition: 21:20
[2020-02-19 18:51] LABS: Bilirubin,Urine NEG (Negative); Blood,Urine LG (Negative); Color,Urine Red (Yellow)
[2020-02-19 18:52] LABS: Protein,Urine >500 mg/dL (Negative); RBC,Urine > 182.0 /HPF (0.0-6.0)
[2020-02-19 19:28] LABS: Basophils # (Auto) 0.1 K/mm3 (0.0-0.1); Basophils % (Auto) 1.3 % (0.0-1.8); Eosinophils # (Auto) 0.1 K/mm3 (0.0-0.4); Hematocrit 42.2 % (30.3-42.9); Hemoglobin 13.7 gm/dl (10.1-14.3); Lymphocytes # (Auto) 1.8 K/mm3 (1.2-5.4); Lymphocytes % (Auto) 40.8 % (13.4-35.0); Mean Corpuscular HGB Conc 32 % (30-34); Mean Corpuscular Volume 74 fl (79-97); Monocytes # (Auto) 0.2 K/mm3 (0.0-0.8); Monocytes % (Auto) 5.3 % (0.0-7.3); Platelet Count 287 K/mm3 (140-440); Red Blood Count 5.71 M/mm3 (3.65-5.03); Red Cell Distribution Width 18.3 % (13.2-15.2)
[2020-02-19 19:48] LABS: Alanine Aminotransferase 10 units/L (7-56); Albumin 4.2 g/dL (3.9-5); Blood Urea Nitrogen 11 mg/dL (7-17); Calcium 9.8 mg/dL (8.4-10.2); Hemolysis Index 3
[2020-02-19 19:57] LABS: BUN/Creatinine Ratio 22
[2020-02-19] MEDS ORDERED: MORPHINE 2 MG/1 ML INJ IV ONE (20:05)
--- NOTE | 2020-02-19 20:37 | XRay Report ---
CHEST 2 VIEWS INDICATION / CLINICAL INFORMATION: Abdominal pain radiating to the right flank starting yesterday. Nausea and vomiting. COMPARISON: None available. FINDINGS: SUPPORT DEVICES: None. HEART / MEDIASTINUM: The heart size and pulmonary vasculature are normal. LUNGS / PLEURA: No significant pulmonary or pleural abnormality. No pneumothorax. ADDITIONAL FINDINGS: The visualized upper abdomen is unremarkable. IMPRESSION: No acute findings. Signer Name: Parker Rosado MD Signed: 02/19/2020 8:32 PM Workstation Name: [id number]
--- NOTE | 2020-02-19 20:47 | Cat Scan Report ---
CT OF THE ABDOMEN AND PELVIS WITHOUT CONTRAST INDICATION / CLINICAL INFORMATION: Right flank pain. TECHNIQUE: All CT scans at this location are performed using CT dose reduction for ALARA by means of automated e xposure control. COMPARISON: None available. FINDINGS: ABDOMEN: There is a 1 mm nonobstructive calculus in the lower pole of the left kidney. I see no evide nce of hydronephrosis, perinephric soft tissue stranding or renal mass. There is a 2 cm calculus in t he gallbladder fundus. The gallbladder is normal in size without wall thickening or bile duct dilatat ion. The liver, spleen, pancreas, adrenal glands and bowel are normal no adenopathy is seen. The lung base s are clear. PELVIS: The distal ureters and urinary bladder are normal. The uterus and adnexal regions are unremar kable. I see no evidence of diverticulitis or appendicitis. No abnormal mass or fluid collection is s een. There is no evidence of hernia. No acute osseous abnormality is seen. IMPRESSION: 1. [address] evidence of acute cholecystitis. 2. Tiny nonobstructive left renal calculus. Signer Name: Parker Rosado MD Signed: 02/19/2020 8:43 PM Workstation Name: [id number]
== END 2020-02-19 21:41 | disposition home or self-care (01) ==
LOC: ED 18:20
DX: K80.80 Other cholelithiasis without obstruction (principal); R10.9 Unspecified abdominal pain; R11.2 Nausea with vomiting, unspecified; I10 Essential (primary) hypertension; E11.9 Type 2 diabetes mellitus without complications; Z90.49 Acquired absence of other specified parts of digestive tract; Z79.899 Other long term (current) drug therapy
CPT/HCPCS: 36415; 71046; 74176; 80053; 81001; 83690; 84703; 85025; 96374; 96375; 96376; 99285; J1885; J2270; J2405; J7030

== ENCOUNTER 2020-08-12 17:41 | Emergency (ER) | payer MEDICARE ==
[2020-08-12 19:28] VITALS: BP 153/98
[2020-08-12 20:15] LABS: Basophils # (Auto) 0.1 K/mm3 (0.0-0.1); Basophils % (Auto) 1.1 % (0.0-1.8); Eosinophils # (Auto) 0.1 K/mm3 (0.0-0.4); Eosinophils % (Auto) 1.3 % (0.0-4.3); Hemoglobin 11.6 gm/dl (10.1-14.3); Lymphocytes # (Auto) 2.3 K/mm3 (1.2-5.4); Lymphocytes % (Auto) 41.7 % (13.4-35.0); Mean Corpuscular HGB Conc 33 % (30-34); Mean Corpuscular Volume 75 fl (79-97); Monocytes # (Auto) 0.4 K/mm3 (0.0-0.8); Monocytes % (Auto) 7.1 % (0.0-7.3); Platelet Count 332 K/mm3 (140-440); Red Blood Count 4.66 M/mm3 (3.65-5.03); Red Cell Distribution Width 17.4 % (13.2-15.2)
[2020-08-12 20:28] LABS: Alanine Aminotransferase 10 units/L (7-56); Albumin 4.6 g/dL (3.9-5); Blood Urea Nitrogen 11 mg/dL (7-17); Calcium 10.1 mg/dL (8.4-10.2); Hemolysis Index 1
[2020-08-12 20:29] LABS: Bacteria,Urine 1+ /HPF (Negative); Bilirubin,Urine NEG (Negative); Blood,Urine NEG (Negative); Color,Urine Amber (Yellow); Mucus,Urine 3+ /HPF
[2020-08-12 20:38] LABS: BUN/Creatinine Ratio 22
== END 2020-08-12 19:27 | disposition left against medical advice (07) ==
LOC: ED 17:41
DX: R11.10 Vomiting, unspecified (principal); Z53.21 Procedure and treatment not carried out due to patient leaving prior to being seen by health care provider
CPT/HCPCS: 36415; 80053; 81001; 85025; 87086

== ENCOUNTER 2020-11-25 11:09 | Emergency (ER) | payer MEDICARE ==
[2020-11-25] MEDS ORDERED: SODIUM CHLORIDE 0.9% 1000 ML 1,000 ML IV ONE (11:28)
[2020-11-25] MEDS ORDERED: ONDANSETRON 4 MG/2 ML INJ IV ONE (11:28)
--- NOTE | 2020-11-25 11:31 | Emergency Department Report ---
ED N/V/D HPI - General Chief complaint: Nausea/Vomiting/Diarrhea Stated complaint: NAUSEA/VOMITING Time Seen by Provider: 11/25/20 11:23 Source: patient Mode of arrival: Ambulatory Limitations: No Limitations - History of Present Illness Initial comments: Patient was evaluated secondary nausea, vomiting, and diarrhea. She states that she feels dizzy and lightheaded. Her blood pressure has been elevated. Her sugar has been elevated. She came here by ambulance for further treatment. There is no dysuria or frequency. She has no cough or congestion. She has no hematemesis or coffee-ground emesis. There is no melenic stool. Patient denies dysuria or frequency. She does not check her sugar because she does not have a meter. She is continue to take her insulin. Despite the fact that she does not check her sugar, she states that her sugar is high. - Related Data Home Medications Medication Instructions Recorded Confirmed Last Taken Lisinopril [Zestril] 5 mg PO BID 05/15/19 05/15/19 05/13/19 Previous Rx's Medication Instructions Recorded Last Taken Type Promethazine [Phenergan] 25 mg PO Q6HR PRN #10 tab 05/15/19 Unknown Rx Fluconazole (Nf) [Diflucan TAB] 150 mg PO ONCE #1 tablet 06/27/19 Unknown Rx Nitrofurantoin [place]/M-Cryst 100 mg PO Q12HR #14 capsule 06/27/19 Unknown Rx [Macrobid CAP] Ondansetron [Zofran Odt] 4 mg PO Q8HR PRN #10 tab.rapdis 01/14/20 Unknown Rx Acetaminophen/Codeine [Tylenol 1 tab PO Q4HR PRN #12 tablet 02/19/20 Unknown Rx /Codeine # 3 tab] Ondansetron [Zofran ODT TAB] 4 mg PO Q8HR PRN #15 tab.rapdis 11/25/20 Unknown Rx Allergies Allergy/AdvReac Type Severity Reaction Status Date / Time No Known Allergies Allergy Unverified 02/19/20 18:22 ED Review of Systems ROS: Stated complaint: NAUSEA/VOMITING Other details as noted in HPI Comment: All other systems reviewed and negative Constitutional: denies: fever Eyes: denies: vision change ENT: denies: throat pain Respiratory: denies: cough Cardiovascular: denies: chest pain Endocrine: increased urine Gastrointestinal: as per HPI Genitourinary: denies: dysuria Musculoskeletal: denies: back pain Skin: denies: rash Neurological: headache (Mild and global) Hematological/Lymphatic: easy bruising ED Past Medical Hx - Past Medical History Hx Hypertension: Yes Hx Diabetes: Yes Additional medical history: Diabetic - Surgical History Hx Cholecystectomy: Yes Hx Appendectomy: Yes Additional Surgical History: Left leg surgery with instrumentation - Family History Family history: diabetes, hypertension - Social History Smoking Status: Never Smoker Substance Use Type: None - Medications Home Medications: Home Medications Medication Instructions Recorded Confirmed Last Taken Type Lisinopril [Zestril] 5 mg PO BID 05/15/19 05/15/19 05/13/19 History Promethazine [Phenergan] 25 mg PO Q6HR PRN #10 tab 05/15/19 Unknown Rx Fluconazole (Nf) [Diflucan TAB] 150 mg PO ONCE #1 tablet 06/27/19 Unknown Rx Nitrofurantoin [place]/M-Cryst 100 mg PO Q12HR #14 capsule 06/27/19 Unknown Rx [Macrobid CAP] Ondansetron [Zofran Odt] 4 mg PO Q8HR PRN #10 tab.rapdis 01/14/20 Unknown Rx Acetaminophen/Codeine [Tylenol 1 tab PO Q4HR PRN #12 tablet 02/19/20 Unknown Rx /Codeine # 3 tab] Ondansetron [Zofran ODT TAB] 4 mg PO Q8HR PRN #15 tab.rapdis 11/25/20 Unknown Rx ED Physical Exam - General Limitations: No Limitations, Other (Pulse ox was noted and normal) General appearance: alert, in no apparent distress - Head Head exam: Present: atraumatic, normocephalic, normal inspection - Eye Eye exam: Present: normal appearance, EOMI. Absent: scleral icterus - ENT ENT exam: Present: mucous membranes dry, normal external ear exam - Neck Neck exam: Present: normal inspection - Respiratory Respiratory exam: Present: normal lung sounds bilaterally. Absent: respiratory distress - Cardiovascular Cardiovascular Exam: Present: normal rhythm, tachycardia - GI/Abdominal GI/Abdominal exam: Present: soft. Absent: tenderness - Extremities Exam Extremities exam: Present: normal capillary refill. Absent: pedal edema - Back Exam Back exam: Absent: CVA tenderness (R), CVA tenderness (L) - Neurological Exam Neurological exam: Present: alert, oriented X3, CN II-XII intact, normal gait. Absent: motor sensory deficit - Psychiatric Psychiatric exam: Present: normal affect, normal mood - Skin Skin exam: Present: warm, dry ED Course Vital Signs 11/25/20 11/25/20 11/25/20 11:13 11:37 11:38 Temperature 98.8 F 98.2 F Pulse Rate 114 H 103 H Respiratory 16 14 14 Rate Blood Pressure Blood Pressure 110/70 84/52 [Left] O2 Sat by Pulse 100 99 99 Oximetry 11/25/20 11:39 Temperature 98.2 F Pulse Rate 103 H Respiratory 14 Rate Blood Pressure 84/52 Blood Pressure [Left] O2 Sat by Pulse 99 Oximetry - Reevaluation(s) Reevaluation #1: 11/25/20 11:31 IV and labs were ordered. Reevaluation #2: 11/25/20 13:19 Labs are noted and the patient had improved. She was discharged. ED Medical Decision Making - Lab Data Result diagrams: 11/25/20 11:33 - Medical Decision Making Patient presented with GI upset and noncompliance. She was found to be hyperglycemic but not in DKA. She does not have profound dehydration. There is no evidence of acute kidney injury. Patient does not appear to be toxic. She is feeling better. She will be treated symptomatically and referred for outpatient evaluation. Critical Care Time: No Critical care attestation.: If time is entered above; I have spent that time in minutes in the direct care of this critically ill patient, excluding procedure time. ED Disposition Clinical Impression: Nausea vomiting and diarrhea, Hyperglycemia due to type 1 diabetes mellitus, Noncompliance Disposition: 01 HOME / SELF CARE / HOMELESS Is pt being admited?: No Condition: Stable Instructions: Diabetes Mellitus Type 2 in Adults (ED), Diabetes Mellitus and Sick Day Management, Nausea and Vomiting, Adult, Diarrhea, Adult, [id number] Additional Instructions: Have a bland diet. Drink plenty water. Return for problems. Follow-up with your regular physician for recheck and further management. Take your medication. Check your blood sugar. Avoid carbohydrates. Prescriptions: Ondansetron [Zofran ODT TAB] 4 mg PO Q8HR PRN #15 tab.rapdis PRN Reason: Nausea Referrals: PRIMARY CARE, [Primary Care Provider] - 3-5 Days LEONEL SERNA MD [Staff Physician] - 3-5 Days
[2020-11-25 11:38] VITALS: BP 84/52
[2020-11-25 12:20] LABS: BUN/Creatinine Ratio 36; Blood Urea Nitrogen 32 mg/dL (7-17); Calcium 9.2 mg/dL (8.4-10.2); Hemolysis Index 13
== END 2020-11-25 13:34 | disposition home or self-care (01) ==
LOC: ED 11:09
DX: E10.65 Type 1 diabetes mellitus with hyperglycemia (principal); Z91.14 Patient's other noncompliance with medication regimen; R11.2 Nausea with vomiting, unspecified; R19.7 Diarrhea, unspecified; I10 Essential (primary) hypertension; Z90.89 Acquired absence of other organs; Z98.890 Other specified postprocedural states
CPT/HCPCS: 36415; 80048; 82962; 96361; 96374; 99284; J2405; J7030

== ENCOUNTER 2020-11-29 18:44 | Emergency (ER) | payer OTHER, MEDICARE ==
[2020-11-29] MEDS ORDERED: IBUPROFEN 800 MG TAB PO ONE (20:50)
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
[2020-11-29 23:02] VITALS: BP 126/91
== END 2020-11-29 23:50 | disposition home or self-care (01) ==
LOC: ED 18:44
DX: S16.1XXA Strain of muscle, fascia and tendon at neck level, initial encounter (principal); S80.11XA Contusion of right lower leg, initial encounter; I10 Essential (primary) hypertension; E11.8 Type 2 diabetes mellitus with unspecified complications; Z90.89 Acquired absence of other organs; Z98.890 Other specified postprocedural states; V43.52XA Car driver injured in collision with other type car in traffic accident, initial encounter; Y93.89 Activity, other specified; Y92.89 Other specified places as the place of occurrence of the external cause; Y99.8 Other external cause status
CPT/HCPCS: 72040; 99283

== ENCOUNTER 2021-02-22 23:27 | Emergency (ER) | payer MEDICARE, OTHER | END 2021-02-23 03:00 | disposition left against medical advice (07) | LOC: ED 23:27 | DX: R73.9 Hyperglycemia, unspecified (principal); Z53.21 Procedure and treatment not carried out due to patient leaving prior to being seen by health care provider ==

== ENCOUNTER 2021-03-15 19:28 | Emergency (ER) | payer MEDICARE ==
[2021-03-15] MEDS ORDERED: ONDANSETRON 4 MG ODT TAB PO ONE (20:41)
[2021-03-15 21:02] LABS: Basophils # (Auto) 0.1 K/mm3 (0.0-0.1); Basophils % (Auto) 1.2 % (0.0-1.8); Eosinophils # (Auto) 0.4 K/mm3 (0.0-0.4); Eosinophils % (Auto) 4.4 % (0.0-4.3); Lymphocytes # (Auto) 3.3 K/mm3 (1.2-5.4); Lymphocytes % (Auto) 35.3 % (13.4-35.0); Mean Corpuscular HGB Conc 29 % (30-34); Monocytes # (Auto) 0.4 K/mm3 (0.0-0.8); Monocytes % (Auto) 4.7 % (0.0-7.3); Platelet Count 500 K/mm3 (140-440); Red Blood Count 5.65 M/mm3 (3.65-5.03)
[2021-03-15 21:13] LABS: Hematocrit 38.7 % (30.3-42.9); Hemoglobin 11.3 gm/dl (10.1-14.3); Mean Corpuscular Volume 68 fl (79-97); Red Cell Distribution Width 21.4 % (13.2-15.2)
[2021-03-15 21:16] LABS: Alanine Aminotransferase 31 units/L (7-56); Albumin 4.1 g/dL (3.9-5); Blood Urea Nitrogen 13 mg/dL (7-17); Calcium 9.8 mg/dL (8.4-10.2); Hemolysis Index 8
[2021-03-15 21:18] LABS: BUN/Creatinine Ratio 22
[2021-03-15] MEDS ORDERED: SODIUM CHLORIDE 0.9% 1000 ML 1,000 ML IV ONE ×2 (21:44)
[2021-03-15] MEDS ORDERED: ONDANSETRON 4 MG/2 ML INJ IV ONE (21:44)
[2021-03-15] MEDS ORDERED: FAMOTIDINE 20 MG/2 ML INJ IV ONE (21:44)
[2021-03-15 22:14] LABS: Bacteria,Urine 1+ /HPF (Negative); Bilirubin,Urine NEG (Negative); Blood,Urine SM (Negative); Color,Urine Yellow (Yellow); Mucus,Urine FEW /HPF; Urobilinogen,Urine < 2.0 mg/dL (<2.0)
--- NOTE | 2021-03-15 23:47 | Emergency Department Report ---
ED General Adult HPI - General Chief complaint: Hyperglycemia Stated complaint: N/V X 3DAYS Time Seen by Provider: 03/15/21 21:28 Source: EMS Mode of arrival: Stretcher Limitations: No Limitations - History of Present Illness Initial comments: Patient is a 35-year-old F [place] female with past medical history of insulin- dependent diabetes has been out of her insulin for the past 4 days. States her blood sugar is elevated. States she is over the last 2 days tried to eat but is not able to keep down solid foods she feels nauseous. Denies cough cold congestion fevers or chills. Patient denies any abdominal pain. States she is try to eat at [facility] as well as [employer] but been unable to keep food down. Severity scale (0 -10): 0 - Related Data Home Medications Medication Instructions Recorded Confirmed Last Taken Lisinopril [Zestril] 5 mg PO BID 05/15/19 05/15/19 05/13/19 Previous Rx's Medication Instructions Recorded Last Taken Type Promethazine [Phenergan] 25 mg PO Q6HR PRN #10 tab 05/15/19 Unknown Rx Fluconazole (Nf) [Diflucan TAB] 150 mg PO ONCE #1 tablet 06/27/19 Unknown Rx Nitrofurantoin [place]/M-Cryst 100 mg PO Q12HR #14 capsule 06/27/19 Unknown Rx [Macrobid CAP] Ondansetron [Zofran Odt] 4 mg PO Q8HR PRN #10 tab.rapdis 01/14/20 Unknown Rx Acetaminophen/Codeine [Tylenol 1 tab PO Q4HR PRN #12 tablet 02/19/20 Unknown Rx /Codeine # 3 tab] Ondansetron [Zofran ODT TAB] 4 mg PO Q8HR PRN #15 tab.rapdis 11/25/20 Unknown Rx Ibuprofen [Motrin 800 MG tab] 800 mg PO Q8HR PRN #30 tablet 11/29/20 Unknown Rx Famotidine [Pepcid] 20 mg PO BID #20 tablet 03/15/21 Unknown Rx Insulin Aspart Prot/Aspart(Nf) 15 units SQ QPM #1 vial 03/15/21 Unknown Rx [Novolog Mix 70/30] Insulin Aspart Prot/Aspart(Nf) 30 units SQ QAM #1 vial 03/15/21 Unknown Rx [Novolog Mix 70/30] Nitrofurantoin [place]/M-Cryst 100 mg PO Q12HR #14 capsule 03/15/21 Unknown Rx [Macrobid CAP] Ondansetron [Zofran Odt] 4 mg PO Q8HR #14 tab.rapdis 03/15/21 Unknown Rx Allergies Allergy/AdvReac Type Severity Reaction Status Date / Time No Known Allergies Allergy Unverified 02/19/20 18:22 ED Review of Systems ROS: Stated complaint: N/V X 3DAYS Other details as noted in HPI Comment: All other systems reviewed and negative ED Past Medical Hx - Past Medical History Hx Hypertension: Yes Hx Diabetes: Yes Additional medical history: Diabetic - Surgical History Hx Cholecystectomy: Yes Hx Appendectomy: Yes Additional Surgical History: Left leg surgery with instrumentation - Social History Smoking Status: Never Smoker Substance Use Type: None - Medications Home Medications: Home Medications Medication Instructions Recorded Confirmed Last Taken Type Lisinopril [Zestril] 5 mg PO BID 05/15/19 05/15/19 05/13/19 History Promethazine [Phenergan] 25 mg PO Q6HR PRN #10 tab 05/15/19 Unknown Rx Fluconazole (Nf) [Diflucan TAB] 150 mg PO ONCE #1 tablet 06/27/19 Unknown Rx Nitrofurantoin [place]/M-Cryst 100 mg PO Q12HR #14 capsule 06/27/19 Unknown Rx [Macrobid CAP] Ondansetron [Zofran Odt] 4 mg PO Q8HR PRN #10 tab.rapdis 01/14/20 Unknown Rx Acetaminophen/Codeine [Tylenol 1 tab PO Q4HR PRN #12 tablet 02/19/20 Unknown Rx /Codeine # 3 tab] Ondansetron [Zofran ODT TAB] 4 mg PO Q8HR PRN #15 tab.rapdis 11/25/20 Unknown Rx Ibuprofen [Motrin 800 MG tab] 800 mg PO Q8HR PRN #30 tablet 11/29/20 Unknown Rx Famotidine [Pepcid] 20 mg PO BID #20 tablet 03/15/21 Unknown Rx Insulin Aspart Prot/Aspart(Nf) 15 units SQ QPM #1 vial 03/15/21 Unknown Rx [Novolog Mix 70/30] Insulin Aspart Prot/Aspart(Nf) 30 units SQ QAM #1 vial 03/15/21 Unknown Rx [Novolog Mix 70/30] Nitrofurantoin [place]/M-Cryst 100 mg PO Q12HR #14 capsule 03/15/21 Unknown Rx [Macrobid CAP] Ondansetron [Zofran Odt] 4 mg PO Q8HR #14 tab.rapdis 03/15/21 Unknown Rx ED Physical Exam - General Limitations: No Limitations General appearance: alert, in no apparent distress - Head Head exam: Present: atraumatic, normocephalic - Eye Eye exam: Present: normal appearance, PERRL, EOMI - ENT ENT exam: Present: mucous membranes moist - Neck Neck exam: Present: normal inspection - Respiratory Respiratory exam: Present: normal lung sounds bilaterally. Absent: respiratory distress, wheezes, rales, rhonchi - Cardiovascular Cardiovascular Exam: Present: normal rhythm, tachycardia, normal heart sounds. Absent: systolic murmur, diastolic murmur, rubs, gallop - GI/Abdominal GI/Abdominal exam: Present: soft, normal bowel sounds. Absent: distended, tenderness, guarding, rebound - Extremities Exam Extremities exam: Present: normal inspection - Back Exam Back exam: Present: normal inspection - Neurological Exam Neurological exam: Present: alert, oriented X3 - Psychiatric Psychiatric exam: Present: normal affect, normal mood - Skin Skin exam: Present: warm, dry, intact, normal color. Absent: rash ED Course Vital Signs 03/15/21 20:26 Temperature 98.7 F Pulse Rate 108 H Respiratory 16 Rate Blood Pressure 150/101 [Left] O2 Sat by Pulse 100 Oximetry ED Medical Decision Making - Lab Data Result diagrams: 03/15/21 20:46 03/15/21 20:46 Lab Results 03/15/21 03/15/21 03/15/21 Range/Units 20:46 20:46 20:46 WBC 9.4 (4.5-11.0) K/mm3 RBC 5.65 H (3.65-5.03) M/mm3 Hgb 11.3 (10.1-14.3) gm/dl Hct 38.7 (30.3-42.9) % MCV 68 L (79-97) fl MCH 20 L (28-32) pg MCHC 29 L (30-34) % RDW 21.4 H (13.2-15.2) % Plt Count 500 H (140-440) K/mm3 Lymph % (Auto) 35.3 H (13.4-35.0) % [place] % (Auto) 4.7 (0.0-7.3) % Eos % (Auto) 4.4 H (0.0-4.3) % Baso % (Auto) 1.2 (0.0-1.8) % Lymph # (Auto) 3.3 (1.2-5.4) K/mm3 [place] # (Auto) 0.4 (0.0-0.8) K/mm3 Eos # (Auto) 0.4 (0.0-0.4) K/mm3 Baso # (Auto) 0.1 (0.0-0.1) K/mm3 Seg Neutrophils % 54.4 (40.0-70.0) % Seg Neutrophils # 5.1 (1.8-7.7) K/mm3 VBG pH (7.320-7.420) Sodium 140 (137-145) mmol/L Potassium 4.7 (3.6-5.0) mmol/L Chloride 101.4 (98-107) mmol/L Carbon Dioxide 27 (22-30) mmol/L Anion Gap 16 mmol/L BUN 13 (7-17) mg/dL Creatinine 0.6 (0.6-1.2) mg/dL Estimated GFR > 60 ml/min BUN/Creatinine Ratio 22 % Glucose 364 H (65-100) mg/dL Calcium 9.8 (8.4-10.2) mg/dL Total Bilirubin < 0.20 (0.1-1.2) mg/dL AST 27 (5-40) units/L ALT 31 (7-56) units/L Alkaline Phosphatase 120 (35-129) units/L Total Protein 7.7 (6.3-8.2) g/dL Albumin 4.1 (3.9-5) g/dL Albumin/Globulin Ratio 1.1 % HCG, Qual Negative (Negative) Urine Color (Yellow) Urine Turbidity (Clear) Urine pH (5.0-7.0) Ur Specific [place] (1.003-1.030) Urine Protein (Negative) mg/dL Urine Glucose (UA) (Negative) mg/dL Urine Ketones (Negative) mg/dL Urine Blood (Negative) Urine Nitrite (Negative) Urine Bilirubin (Negative) Urine Urobilinogen (<2.0) mg/dL Ur Leukocyte Esterase (Negative) Urine WBC (Auto) (0.0-6.0) /HPF Urine RBC (Auto) (0.0-6.0) /HPF U Epithel Cells (Auto) (0-13.0) /HPF Urine Bacteria (Auto) (Negative) /HPF Urine Mucus /HPF 03/15/21 03/15/21 Range/Units 20:46 Unknown WBC (4.5-11.0) K/mm3 RBC (3.65-5.03) M/mm3 Hgb (10.1-14.3) gm/dl Hct (30.3-42.9) % MCV (79-97) fl MCH (28-32) pg MCHC (30-34) % RDW (13.2-15.2) % Plt Count (140-440) K/mm3 Lymph % (Auto) (13.4-35.0) % [place] % (Auto) (0.0-7.3) % Eos % (Auto) (0.0-4.3) % Baso % (Auto) (0.0-1.8) % Lymph # (Auto) (1.2-5.4) K/mm3 [place] # (Auto) (0.0-0.8) K/mm3 Eos # (Auto) (0.0-0.4) K/mm3 Baso # (Auto) (0.0-0.1) K/mm3 Seg Neutrophils % (40.0-70.0) % Seg Neutrophils # (1.8-7.7) K/mm3 VBG pH 7.386 (7.320-7.420) Sodium (137-145) mmol/L Potassium (3.6-5.0) mmol/L Chloride (98-107) mmol/L Carbon Dioxide (22-30) mmol/L Anion Gap mmol/L BUN (7-17) mg/dL Creatinine (0.6-1.2) mg/dL Estimated GFR ml/min BUN/Creatinine Ratio % Glucose (65-100) mg/dL Calcium (8.4-10.2) mg/dL Total Bilirubin (0.1-1.2) mg/dL AST (5-40) units/L ALT (7-56) units/L Alkaline Phosphatase (35-129) units/L Total Protein (6.3-8.2) g/dL Albumin (3.9-5) g/dL Albumin/Globulin Ratio % HCG, Qual (Negative) Urine Color Yellow (Yellow) Urine Turbidity Slightly-cloudy (Clear) Urine pH 6.0 (5.0-7.0) Ur Specific [place] 1.033 H (1.003-1.030) Urine Protein 30 mg/dl (Negative) mg/dL Urine Glucose (UA) >=500 (Negative) mg/dL Urine Ketones Tr (Negative) mg/dL Urine Blood Sm (Negative) Urine Nitrite Neg (Negative) Urine Bilirubin Neg (Negative) Urine Urobilinogen < 2.0 (<2.0) mg/dL Ur Leukocyte Esterase Sm (Negative) Urine WBC (Auto) 76.0 H (0.0-6.0) /HPF Urine RBC (Auto) 18.0 (0.0-6.0) /HPF U Epithel Cells (Auto) 5.0 (0-13.0) /HPF Urine Bacteria (Auto) 1+ (Negative) /HPF Urine Mucus Few /HPF - Medical Decision Making Patient blood glucose elevated patient likely with mild dehydration. Patient hydrated given antiemetics. Patient does have a UTI will be treated with antibiotics and discharged home. Critical care attestation.: If time is entered above; I have spent that time in minutes in the direct care of this critically ill patient, excluding procedure time. ED Disposition Clinical Impression: Mild dehydration, Hyperglycemia Acute gastritis Qualifiers: Gastritis type: superficial Gastritis bleeding: without bleeding Qualified Code(s): K29.00 - Acute gastritis without bleeding Acute cystitis Qualifiers: Hematuria presence: without hematuria Qualified Code(s): N30.00 - Acute cysti tis without hematuria Disposition: 01 HOME / SELF CARE / HOMELESS Is pt being admited?: No Does the pt Need Aspirin: No Condition: Stable Instructions: Dehydration, Adult, [id number], Hyperglycemia, [id number], Gastritis, Adult, Urinary Tract Infection, Adult, [id number] Referrals: PERI MONSON MD [Referring] - 3-5 Days Time of Disposition: 23:48
[2021-03-16] MEDS ORDERED: ONDANSETRON 4 MG ODT TAB PO ONE (00:16)
[2021-03-16 01:08] VITALS: BP 146/80
== END 2021-03-16 01:03 | disposition home or self-care (01) ==
LOC: ED 19:28
DX: E11.65 Type 2 diabetes mellitus with hyperglycemia (principal); E86.0 Dehydration; K29.00 Acute gastritis without bleeding; I10 Essential (primary) hypertension; Z90.49 Acquired absence of other specified parts of digestive tract; Z98.890 Other specified postprocedural states; Z79.899 Other long term (current) drug therapy; N30.00 Acute cystitis without hematuria
CPT/HCPCS: 36415; 80053; 81001; 82805; 84703; 85025; 87076; 87086; 96361; 96374; 96375; 99284; J2405; J3490; J7030; Q0162

== ENCOUNTER 2021-04-20 12:28 | Emergency (ER) | payer MEDICARE ==
[2021-04-20] MEDS ORDERED: SODIUM CHLORIDE 0.9% 1000 ML 1,000 ML IV ONE (13:01)
[2021-04-20] MEDS ORDERED: INSULIN REGULAR, HUMAN 100 UNITS/1 ML SUB-Q ONE (13:01)
--- NOTE | 2021-04-20 13:05 | Emergency Department Report ---
ED General Adult HPI - General Chief complaint: Hyperglycemia Stated complaint: ELEVATED BLOOD GLUCOSE Time Seen by Provider: 04/20/21 12:40 Source: patient, EMS Mode of arrival: Ambulatory Limitations: No Limitations - History of Present Illness Initial comments: Patient presents by ambulance secondary to hyperglycemia. She was seen at [facility] yesterday. She was given fluids and insulin. She was given a prescription for insulin but never filled her prescription. She called EMS today because her blood sugar was high. She states she is ran out of insulin 2 days ago. She did not fill her prescription yesterday because "she did not have a ride." Patient has no nausea or vomiting. She states that her sugar is always high despite being on insulin. She states that her blood pressure is always high despite being on medication. She has no fevers or chills. There is no dysuria or frequency. She does report polyuria and polydipsia. - Related Data Home Medications Medication Instructions Recorded Confirmed Last Taken Lisinopril [Zestril] 5 mg PO BID 05/15/19 05/15/19 05/13/19 Previous Rx's Medication Instructions Recorded Last Taken Type Promethazine [Phenergan] 25 mg PO Q6HR PRN #10 tab 05/15/19 Unknown Rx Fluconazole (Nf) [Diflucan TAB] 150 mg PO ONCE #1 tablet 06/27/19 Unknown Rx Nitrofurantoin Weakley/M-Cryst 100 mg PO Q12HR #14 capsule 06/27/19 Unknown Rx [Macrobid CAP] Ondansetron [Zofran Odt] 4 mg PO Q8HR PRN #10 tab.rapdis 01/14/20 Unknown Rx Acetaminophen/Codeine [Tylenol 1 tab PO Q4HR PRN #12 tablet 02/19/20 Unknown Rx /Codeine # 3 tab] Ondansetron [Zofran ODT TAB] 4 mg PO Q8HR PRN #15 tab.rapdis 11/25/20 Unknown Rx Ibuprofen [Motrin 800 MG tab] 800 mg PO Q8HR PRN #30 tablet 11/29/20 Unknown Rx Famotidine [Pepcid] 20 mg PO BID #20 tablet 03/15/21 Unknown Rx Insulin Aspart Prot/Aspart(Nf) 15 units SQ QPM #1 vial 03/15/21 Unknown Rx [Novolog Mix 70/30] Insulin Aspart Prot/Aspart(Nf) 30 units SQ QAM #1 vial 03/15/21 Unknown Rx [Novolog Mix 70/30] Nitrofurantoin Weakley/M-Cryst 100 mg PO Q12HR #14 capsule 03/15/21 Unknown Rx [Macrobid CAP] Ondansetron [Zofran Odt] 4 mg PO Q8HR #14 tab.rapdis 03/15/21 Unknown Rx Allergies Allergy/AdvReac Type Severity Reaction Status Date / Time No Known Allergies Allergy Verified 04/20/21 12:32 ED Review of Systems ROS: Stated complaint: ELEVATED BLOOD GLUCOSE Other details as noted in HPI Comment: All other systems reviewed and negative Constitutional: denies: fever Eyes: denies: vision change ENT: denies: throat pain Respiratory: denies: cough Cardiovascular: denies: chest pain Endocrine: denies: unexplained weight loss Gastrointestinal: denies: abdominal pain Genitourinary: denies: dysuria Musculoskeletal: denies: back pain Skin: denies: rash Neurological: denies: headache Hematological/Lymphatic: denies: easy bruising ED Past Medical Hx - Past Medical History Hx Hypertension: Yes Hx Diabetes: Yes Additional medical history: Diabetic - Surgical History Hx Cholecystectomy: Yes Hx Appendectomy: Yes Additional Surgical History: Left leg surgery with instrumentation - Family History Family history: diabetes - Social History Smoking Status: Never Smoker Substance Use Type: None - Medications Home Medications: Home Medications Medication Instructions Recorded Confirmed Last Taken Type Lisinopril [Zestril] 5 mg PO BID 05/15/19 05/15/19 05/13/19 History Promethazine [Phenergan] 25 mg PO Q6HR PRN #10 tab 05/15/19 Unknown Rx Fluconazole (Nf) [Diflucan TAB] 150 mg PO ONCE #1 tablet 06/27/19 Unknown Rx Nitrofurantoin Weakley/M-Cryst 100 mg PO Q12HR #14 capsule 06/27/19 Unknown Rx [Macrobid CAP] Ondansetron [Zofran Odt] 4 mg PO Q8HR PRN #10 tab.rapdis 01/14/20 Unknown Rx Acetaminophen/Codeine [Tylenol 1 tab PO Q4HR PRN #12 tablet 02/19/20 Unknown Rx /Codeine # 3 tab] Ondansetron [Zofran ODT TAB] 4 mg PO Q8HR PRN #15 tab.rapdis 11/25/20 Unknown Rx Ibuprofen [Motrin 800 MG tab] 800 mg PO Q8HR PRN #30 tablet 11/29/20 Unknown Rx Famotidine [Pepcid] 20 mg PO BID #20 tablet 03/15/21 Unknown Rx Insulin Aspart Prot/Aspart(Nf) 15 units SQ QPM #1 vial 03/15/21 Unknown Rx [Novolog Mix 70/30] Insulin Aspart Prot/Aspart(Nf) 30 units SQ QAM #1 vial 03/15/21 Unknown Rx [Novolog Mix 70/30] Nitrofurantoin Weakley/M-Cryst 100 mg PO Q12HR #14 capsule 03/15/21 Unknown Rx [Macrobid CAP] Ondansetron [Zofran Odt] 4 mg PO Q8HR #14 tab.rapdis 03/15/21 Unknown Rx ED Physical Exam - General Limitations: No Limitations, Other (Pulse ox noted and normal) General appearance: alert, in no apparent distress - Head Head exam: Present: atraumatic, normocephalic, normal inspection - Eye Eye exam: Present: normal appearance, PERRL, EOMI. Absent: scleral icterus - ENT ENT exam: Present: mucous membranes dry, normal external ear exam - Neck Neck exam: Present: normal inspection. Absent: meningismus - Respiratory Respiratory exam: Present: normal lung sounds bilaterally. Absent: respiratory distress - Cardiovascular Cardiovascular Exam: Present: normal rhythm, tachycardia - GI/Abdominal GI/Abdominal exam: Present: soft. Absent: distended, tenderness - Extremities Exam Extremities exam: Present: normal capillary refill - Back Exam Back exam: Absent: CVA tenderness (R), CVA tenderness (L) - Neurological Exam Neurological exam: Present: alert, oriented X3, CN II-XII intact, normal gait. Absent: motor sensory deficit - Psychiatric Psychiatric exam: Present: normal affect, normal mood - Skin Skin exam: Present: warm, dry ED Course Vital Signs 04/20/21 04/20/21 04/20/21 12:30 13:46 14:00 Temperature 98.1 F Pulse Rate 116 H Respiratory 16 Rate Blood Pressure 134/90 Blood Pressure 120/75 [Left] O2 Sat by Pulse 97 100 100 Oximetry 04/20/21 04/20/21 04/20/21 14:16 14:30 14:46 Temperature Pulse Rate Respiratory Rate Blood Pressure 134/90 145/90 145/90 Blood Pressure [Left] O2 Sat by Pulse 100 100 100 Oximetry - Reevaluation(s) Reevaluation #1: 04/20/21 13:03 EMS was met upon arrival. Labs were ordered. Old records reviewed. Reevaluation #2: 04/20/21 15:07 Labs are noted. Patient will not need admission. She does not have DKA. Further IV hydration has been ordered. ED Medical Decision Making - Lab Data Result diagrams: 04/20/21 13:30 04/20/21 13:30 Rhythm strip: Normal sinus rhythm without ectopy per monitor observe 10 seconds. - Medical Decision Making Patient presented by ambulance secondary to uncontrolled diabetes. She was not in DKA. She has been hydrated aggressively. Hypokalemia has been addressed. Patient has been given insulin. She had a prescription for insulin which she did not fill. She has been strongly encouraged to fill and utilize her medications. She does not appear to be septic or toxic. There is no obvious infectious pathology. She does not have any evidence of metabolic acidosis or anion gap acidosis. Critical Care Time: No Critical care attestation.: If time is entered above; I have spent that time in minutes in the direct care of this critically ill patient, excluding procedure time. ED Disposition Clinical Impression: Noncompliance Uncontrolled type 1 diabetes mellitus Qualifiers: Glycemic state: with hyperglycemia Qualified Code(s): E10.65 - Type 1 diabetes mellitus with hyperglycemia Disposition: 01 HOME / SELF CARE / HOMELESS Is pt being admited?: No Condition: Stable Instructions: Insulin Treatment for Diabetes Mellitus, Complementary and Alternative Medical Therapies for Diabetes, Living With Diabetes, Hyperglycemia, Diabetes Mellitus Type 2 in Adults (ED) Additional Instructions: Take your insulin. Fill your prescriptions. Drink water. Stop eating carbohydrates such as potatoes, pasta, and bread. Return for problems. Follow- up with your regular doctor or the on-call doctor for recheck. Referrals: PRIMARY MD MOISE [Referring] - 3-5 Days MAO BRUCE MD [Staff Physician] - 3-5 Days
[2021-04-20 13:57] LABS: Mean Corpuscular HGB Conc 30 % (30-34); Mean Corpuscular Volume 71 fl (79-97); Platelet Count 481 K/mm3 (140-440)
[2021-04-20 14:11] LABS: BUN/Creatinine Ratio 25; Blood Urea Nitrogen 27 mg/dL (7-17); Calcium 9.6 mg/dL (8.4-10.2); Hemolysis Index 1
[2021-04-20 14:35] LABS: Hematocrit 40.4 % (30.3-42.9); Hemoglobin 12.2 gm/dl (10.1-14.3); Red Cell Distribution Width 21.5 % (13.2-15.2)
[2021-04-20] MEDS ORDERED: POTASSIUM CHLORIDE ER 20 MEQ TAB PO ONE (15:07)
[2021-04-20] MEDS ORDERED: LACTATED RINGERS 1,000 ML IV ONE (15:07)
[2021-04-20 18:32] VITALS: BP 159/109
== END 2021-04-20 18:45 | disposition home or self-care (01) ==
LOC: ED 12:28
DX: E10.65 Type 1 diabetes mellitus with hyperglycemia (principal); Z91.14 Patient's other noncompliance with medication regimen; I10 Essential (primary) hypertension; Z90.49 Acquired absence of other specified parts of digestive tract; Z79.899 Other long term (current) drug therapy
CPT/HCPCS: 36415; 80048; 82805; 82962; 85027; 99284; J7030; J7120; 96360; 96361; 96372; Q0162; Q9967; J1815

== ENCOUNTER 2021-06-04 22:45 | Emergency (ER) | payer MEDICARE ==
[2021-06-04 23:56] LABS: Color,Urine Yellow (Yellow)
[2021-06-04 23:57] LABS: Bilirubin,Urine NEG (Negative); Blood,Urine NEG (Negative); RBC,Urine < 1.0 /HPF (0.0-6.0); WBC,Urine < 1.0 /HPF (0.0-6.0)
[2021-06-05 01:14] LABS: Hematocrit 40.9 % (30.3-42.9); Hemoglobin 12.8 gm/dl (10.1-14.3); Mean Corpuscular HGB Conc 31 % (30-34); Mean Corpuscular Volume 71 fl (79-97); Platelet Count 398 K/mm3 (140-440); Red Blood Count 5.76 M/mm3 (3.65-5.03)
[2021-06-05 01:56] LABS: Alanine Aminotransferase 11 units/L (7-56); Albumin 3.9 g/dL (3.9-5); Blood Urea Nitrogen 27 mg/dL (7-17); Calcium 9.6 mg/dL (8.4-10.2); Hemolysis Index 47
[2021-06-05 01:57] LABS: BUN/Creatinine Ratio 45
[2021-06-05] MEDS ORDERED: SODIUM CHLORIDE 0.9% 1000 ML 1,000 ML IV ONE ×2 (02:37→03:10)
[2021-06-05] MEDS ORDERED: INSULIN REGULAR, HUMAN 100 UNITS/1 ML IV ONE (03:11)
--- NOTE | 2021-06-05 03:50 | Emergency Department Report ---
ED General Adult HPI - General Chief complaint: Abdominal Pain Stated complaint: HIGH BLOOD PRESSURE AND SUGAR Source: patient Mode of arrival: Ambulatory Limitations: No Limitations - History of Present Illness Initial comments: Patient is a 36-year-old -[place] female with a history of hypertension and efg-cqukuyf-[id number] diabetes who presents to the ED with complaint of persistently elevated blood sugar and hypertension for the last 2 weeks. Patient states that she takes metformin as well as insulin and also takes blood pressure medications but her blood pressure has been persistently elevated as well. Patient states that she has an appointment with her primary care physician in about 1 month's time but she did not want to wait that long given her poorly controlled diabetes. Patient denies dizziness, syncope, chest pain, shortness of breath, nausea and vomiting or diarrhea, dysuria, urinary frequency and urgency or abdominal pain, fever and chills and cough. MD Complaint: Elevated blood sugar and high blood pressure -: Sudden, week(s) (1) Location: head Radiation: non-radiation Severity scale (0 -10): 0 Quality: dull Consistency: intermittent Improves with: none Worsens with: none Associated Symptoms: denies other symptoms. denies: confusion, chest pain, cough, diaphoresis, fever/chills, headaches, loss of appetite, nausea/vomiting, rash, seizure, shortness of breath, syncope, weakness Treatments Prior to Arrival: none - Related Data Home Medications Medication Instructions Recorded Confirmed Last Taken Lisinopril [Zestril] 5 mg PO BID 05/15/19 05/15/19 05/13/19 Previous Rx's Medication Instructions Recorded Last Taken Type Promethazine [Phenergan] 25 mg PO Q6HR PRN #10 tab 05/15/19 Unknown Rx Fluconazole (Nf) [Diflucan TAB] 150 mg PO ONCE #1 tablet 06/27/19 Unknown Rx Nitrofurantoin Bailey/M-Cryst 100 mg PO Q12HR #14 capsule 06/27/19 Unknown Rx [Macrobid CAP] Ondansetron [Zofran Odt] 4 mg PO Q8HR PRN #10 tab.rapdis 01/14/20 Unknown Rx Acetaminophen/Codeine [Tylenol 1 tab PO Q4HR PRN #12 tablet 02/19/20 Unknown Rx /Codeine # 3 tab] Ondansetron [Zofran ODT TAB] 4 mg PO Q8HR PRN #15 tab.rapdis 11/25/20 Unknown Rx Ibuprofen [Motrin 800 MG tab] 800 mg PO Q8HR PRN #30 tablet 11/29/20 Unknown Rx Famotidine [Pepcid] 20 mg PO BID #20 tablet 03/15/21 Unknown Rx Insulin Aspart Prot/Aspart(Nf) 15 units SQ QPM #1 vial 03/15/21 Unknown Rx [Novolog Mix 70/30] Insulin Aspart Prot/Aspart(Nf) 30 units SQ QAM #1 vial 03/15/21 Unknown Rx [Novolog Mix 70/30] Nitrofurantoin Bailey/M-Cryst 100 mg PO Q12HR #14 capsule 03/15/21 Unknown Rx [Macrobid CAP] Ondansetron [Zofran Odt] 4 mg PO Q8HR #14 tab.rapdis 03/15/21 Unknown Rx Allergies Allergy/AdvReac Type Severity Reaction Status Date / Time No Known Allergies Allergy Verified 04/20/21 12:32 ED Review of Systems ROS: Stated complaint: HIGH BLOOD PRESSURE AND SUGAR Other details as noted in HPI Constitutional: malaise, other (Hyperglycemia). denies: chills, fever, weakness Eyes: denies: eye pain, eye discharge, vision change ENT: denies: ear pain, throat pain Respiratory: denies: cough, shortness of breath, wheezing Cardiovascular: denies: chest pain, palpitations Endocrine: no symptoms reported Gastrointestinal: denies: abdominal pain, nausea, vomiting, diarrhea Genitourinary: denies: urgency, dysuria, discharge Musculoskeletal: denies: back pain, joint swelling, arthralgia Skin: denies: rash, lesions Neurological: denies: headache, weakness, paresthesias Psychiatric: denies: anxiety, depression Hematological/Lymphatic: denies: easy bleeding, easy bruising ED Past Medical Hx - Past Medical History Hx Hypertension: Yes Hx Diabetes: Yes Additional medical history: Diabetic - Surgical History Hx Cholecystectomy: Yes Hx Appendectomy: Yes Additional Surgical History: Left leg surgery with instrumentation - Social History Smoking Status: Never Smoker Substance Use Type: None - Medications Home Medications: Home Medications Medication Instructions Recorded Confirmed Last Taken Type Lisinopril [Zestril] 5 mg PO BID 05/15/19 05/15/19 05/13/19 History Promethazine [Phenergan] 25 mg PO Q6HR PRN #10 tab 05/15/19 Unknown Rx Fluconazole (Nf) [Diflucan TAB] 150 mg PO ONCE #1 tablet 06/27/19 Unknown Rx Nitrofurantoin Bailey/M-Cryst 100 mg PO Q12HR #14 capsule 06/27/19 Unknown Rx [Macrobid CAP] Ondansetron [Zofran Odt] 4 mg PO Q8HR PRN #10 tab.rapdis 01/14/20 Unknown Rx Acetaminophen/Codeine [Tylenol 1 tab PO Q4HR PRN #12 tablet 02/19/20 Unknown Rx /Codeine # 3 tab] Ondansetron [Zofran ODT TAB] 4 mg PO Q8HR PRN #15 tab.rapdis 11/25/20 Unknown Rx Ibuprofen [Motrin 800 MG tab] 800 mg PO Q8HR PRN #30 tablet 11/29/20 Unknown Rx Famotidine [Pepcid] 20 mg PO BID #20 tablet 03/15/21 Unknown Rx Insulin Aspart Prot/Aspart(Nf) 15 units SQ QPM #1 vial 03/15/21 Unknown Rx [Novolog Mix 70/30] Insulin Aspart Prot/Aspart(Nf) 30 units SQ QAM #1 vial 03/15/21 Unknown Rx [Novolog Mix 70/30] Nitrofurantoin Bailey/M-Cryst 100 mg PO Q12HR #14 capsule 03/15/21 Unknown Rx [Macrobid CAP] Ondansetron [Zofran Odt] 4 mg PO Q8HR #14 tab.rapdis 03/15/21 Unknown Rx ED Physical Exam - General Limitations: No Limitations General appearance: alert, in no apparent distress - Head Head exam: Present: atraumatic, normocephalic, normal inspection - Eye Eye exam: Present: normal appearance, PERRL, EOMI Pupils: Present: normal accommodation - ENT ENT exam: Present: normal exam, normal orophraynx, mucous membranes moist, TM's normal bilaterally, normal external ear exam - Neck Neck exam: Present: normal inspection, full ROM. Absent: tenderness - Respiratory Respiratory exam: Present: normal lung sounds bilaterally. Absent: respiratory distress, wheezes, rales, stridor, chest wall tenderness, accessory muscle use, decreased breath sounds, prolonged expiratory - Cardiovascular Cardiovascular Exam: Present: regular rate, normal rhythm, normal heart sounds. Absent: systolic murmur, diastolic murmur, rubs, gallop - GI/Abdominal GI/Abdominal exam: Present: soft, normal bowel sounds. Absent: tenderness, guarding, rebound, hyperactive bowel sounds, hypoactive bowel sounds, organomegaly, mass, bruit, pulsatile mass - Extremities Exam Extremities exam: Present: normal inspection, full ROM, normal capillary refill. Absent: tenderness - Back Exam Back exam: Present: normal inspection, full ROM. Absent: tenderness, CVA tenderness (R), CVA tenderness (L), muscle spasm, paraspinal tenderness, vertebral tenderness - Neurological Exam Neurological exam: Present: alert, oriented X3, CN II-XII intact, normal gait, reflexes normal - Psychiatric Psychiatric exam: Present: normal affect, normal mood - Skin Skin exam: Present: warm, dry, intact, normal color. Absent: rash ED Course Vital Signs 06/04/21 23:10 Temperature 98.3 F Pulse Rate 114 H Respiratory 18 Rate Blood Pressure 122/82 O2 Sat by Pulse 98 Oximetry ED Medical Decision Making - Lab Data Result diagrams: 06/05/21 00:39 06/05/21 00:39 - Medical Decision Making This is a 36-year-old -[place] female with a history of hypertension and [id number]-bxejxdutm diabetes who presents to the ED with complaint of persistently elevated blood sugar and hypertension for the last 2 weeks. Patient states that she takes metformin as well as insulin and also takes blood pressure medications but her blood pressure has been persistently elevated as well. Patient states that she has an appointment with her primary care physician in about 1 month's time but she did not want to wait that long given her poorly controlled diabetes. In the ED, patient is alert and oriented x3 and is not in any distress. Patient is however afebrile and tachycardic but normotensive in triage. Lab test results were reviewed and showed hyperglycemia of 388 mg/dL and BUN of 27. The rest of the lab test results are nonactionable. Patient received 2 L of normal saline IV bolus and insulin in the ED. On reevaluation, patient final [id number] glucose was significantly improved. Patient was discharged home and advised to follow-up with her primary care physician in 7 to 10 days for reevaluation. Patient was advised return to the ED immediately if symptoms get worse. - Differential Diagnosis Hyperglycemia; dehydration; anxiety Critical care attestation.: If time is entered above; I have spent that time in minutes in the direct care of this critically ill patient, excluding procedure time. ED Disposition Clinical Impression: Hyperglycemia due to type 2 diabetes mellitus Qualifiers: Diabetes mellitus long term care administrator insulin use: without long term care administrator use Qualified C ode(s): E11.65 - Type 2 diabetes mellitus with hyperglycemia Disposition: 01 HOME / SELF CARE / HOMELESS Is pt being admited?: No Does the pt Need Aspirin: No Condition: Stable Instructions: Hyperglycemia, [id number], Type 2 Diabetes Mellitus, Self Care, Adult, [id number], Diabetes Mellitus and Exercise, Diabetes Mellitus Type 2 in Adults (ED), Abdominal Pain (ED) Additional Instructions: All lab test results were reviewed and are all nonactionable except for hyperglycemia of 318 mg/dL. Therefore adjust your insulin doses accordingly and follow-up with your primary care physician in 7 to 10 days for reevaluation. Return to the ED immediately if symptoms get worse. Referrals: [facility] [Provider Group] - 7-10 days Time of Disposition: 03:51 Print Language: NEPALI
[2021-06-05 06:13] VITALS: BP 157/104
== END 2021-06-05 06:15 | disposition home or self-care (01) ==
LOC: ED 22:45
DX: E11.65 Type 2 diabetes mellitus with hyperglycemia (principal); Z90.49 Acquired absence of other specified parts of digestive tract
CPT/HCPCS: 36415; 80053; 81001; 82962; 83690; 84703; 85025; 96361; 96374; 99283; J7030; Q9967; J1815

== ENCOUNTER 2021-07-13 16:31 | Emergency (ER) | payer MEDICARE ==
[2021-07-13 16:39] VITALS: BP 126/77
== END 2021-07-13 21:01 | disposition left against medical advice (07) ==
LOC: ED 16:31
DX: R11.10 Vomiting, unspecified (principal); Z53.21 Procedure and treatment not carried out due to patient leaving prior to being seen by health care provider

== ENCOUNTER 2021-07-14 21:06 | Emergency (ER) | payer MEDICARE ==
[2021-07-14 21:13] VITALS: BP 150/100
[2021-07-15 00:52] LABS: Basophils # (Auto) 0.1 K/mm3 (0.0-0.1); Basophils % (Auto) 0.6 % (0.0-1.8); Eosinophils # (Auto) 0.1 K/mm3 (0.0-0.4); Eosinophils % (Auto) 0.5 % (0.0-4.3); Hematocrit 38.1 % (30.3-42.9); Hemoglobin 12.7 gm/dl (10.1-14.3); Lymphocytes # (Auto) 3.5 K/mm3 (1.2-5.4); Lymphocytes % (Auto) 28.6 % (13.4-35.0); Mean Corpuscular HGB Conc 33 % (30-34); Mean Corpuscular Volume 72 fl (79-97); Monocytes # (Auto) 0.6 K/mm3 (0.0-0.8); Monocytes % (Auto) 4.8 % (0.0-7.3); Platelet Count 486 K/mm3 (140-440); Red Blood Count 5.33 M/mm3 (3.65-5.03); Red Cell Distribution Width 19.5 % (13.2-15.2)
[2021-07-15 01:04] LABS: Alanine Aminotransferase 12 units/L (7-56); Albumin 4.2 g/dL (3.9-5); Blood Urea Nitrogen 29 mg/dL (7-17); Calcium 10.6 mg/dL (8.4-10.2); Hemolysis Index 0
[2021-07-15 01:06] LABS: BUN/Creatinine Ratio 48
[2021-07-15] MEDS ORDERED: FAMOTIDINE 20 MG/2 ML INJ IV ONE (02:48)
[2021-07-15] MEDS ORDERED: SODIUM CHLORIDE 0.9% 1000 ML 1,000 ML IV ONE (02:48)
[2021-07-15] MEDS ORDERED: diphenhydrAMINE 50 MG/ML VIAL IV ONE (02:48)
[2021-07-15] MEDS ORDERED: MORPHINE 4 MG/1 ML INJ IV ONE (02:48)
[2021-07-15] MEDS ORDERED: METOCLOPRAMIDE 10 MG/2 ML INJ IV ONE (02:49)
[2021-07-15 03:31] LABS: Bacteria,Urine 1+ /HPF (Negative); Mucus,Urine FEW /HPF
[2021-07-15 03:38] LABS: Bilirubin,Urine Negative (Negative); Blood,Urine Moderate (Negative); Color,Urine Yellow (Yellow)
[2021-07-15 03:39] LABS: Protein,Urine <15 mg/dL mg/dL (Negative); Urobilinogen,Urine < 2.0 mg/dL (<2.0)
[2021-07-15] MEDS ORDERED: cefTRIAXone/NS 1 GM/50 ML 1 GM/50 ML BAG IV ONE (04:11)
--- NOTE | 2021-07-15 05:31 | Emergency Department Report ---
ED Abdominal Pain HPI - General Chief Complaint: Abdominal Pain Stated Complaint: ABD PAIN Source: EMS Mode of arrival: Stretcher Limitations: No Limitations - History of Present Illness Initial Comments: Patient is a 36-year-old -[place] female with a history of non-insulin- dependent diabetes and hypertension who presents to the ED with complaint of acute onset persistent epigastric pain with nausea and vomiting diarrhea for the last 2 days, worse in the last 24 hours. Patient states that she suspects that she may have eaten wrong food and that the symptoms have been persistent since onset and that in the last 24 hours she has noted maybe could be anything down. Patient denies dizziness, syncope, lightheadedness, chest pain or shortness of breath, cough, sore throat, headache, hematemesis, hematochezia, dysuria, urinary frequency and urgency and low back pain MD Complaint: abdominal pain (epigastric pain), other (nausea and vomiting) -: days(s) (2), week(s) (1) Location: epigastric Radiation: none Migration to: no migration Severity scale (0 -10): 8 Quality: cramping, sharp Consistency: intermittent Improves With: nothing Worsens With: eating, vomiting Context: possible food poisoning Associated Symptoms: denies other symptoms, nausea, vomiting, diarrhea, anorexia. denies: fever, chills, constipation, hematemesis, hematochezia, melena, hematuria, syncope - Related Data Home Medications Medication Instructions Recorded Confirmed Last Taken Lisinopril [Zestril] 5 mg PO BID 05/15/19 05/15/19 05/13/19 Previous Rx's Medication Instructions Recorded Last Taken Type Promethazine [Phenergan] 25 mg PO Q6HR PRN #10 tab 05/15/19 Unknown Rx Fluconazole (Nf) [Diflucan TAB] 150 mg PO ONCE #1 tablet 06/27/19 Unknown Rx Nitrofurantoin [place]/M-Cryst 100 mg PO Q12HR #14 capsule 06/27/19 Unknown Rx [Macrobid CAP] Acetaminophen/Codeine [Tylenol 1 tab PO Q4HR PRN #12 tablet 02/19/20 Unknown Rx /Codeine # 3 tab] Ondansetron [Zofran ODT TAB] 4 mg PO Q8HR PRN #15 tab.rapdis 11/25/20 Unknown Rx Ibuprofen [Motrin 800 MG tab] 800 mg PO Q8HR PRN #30 tablet 11/29/20 Unknown Rx Insulin Aspart Prot/Aspart(Nf) 15 units SQ QPM #1 vial 03/15/21 Unknown Rx [Novolog Mix 70/30] Insulin Aspart Prot/Aspart(Nf) 30 units SQ QAM #1 vial 03/15/21 Unknown Rx [Novolog Mix 70/30] Nitrofurantoin [place]/M-Cryst 100 mg PO Q12HR #14 capsule 03/15/21 Unknown Rx [Macrobid CAP] Ondansetron [Zofran Odt] 4 mg PO Q8HR #14 tab.rapdis 03/15/21 Unknown Rx Dicyclomine [Bentyl] 20 mg PO Q6H PRN #30 tablet 07/15/21 Unknown Rx Famotidine [Pepcid] 20 mg PO BID #60 tablet 07/15/21 Unknown Rx Omeprazole 40 mg PO DAILY #30 cap 07/15/21 Unknown Rx Ondansetron [Zofran ODT TAB] 4 mg PO Q8HR PRN #20 tab.rapdis 07/15/21 Unknown Rx cephALEXin [Keflex] 500 mg PO Q8HR #30 cap 07/15/21 Unknown Rx Allergies Allergy/AdvReac Type Severity Reaction Status Date / Time No Known Allergies Allergy Verified 04/20/21 12:32 ED Review of Systems ROS: Stated complaint: ABD PAIN Other details as noted in HPI Constitutional: malaise, weakness. denies: chills, fever Eyes: denies: eye pain, eye discharge, vision change ENT: denies: ear pain, throat pain Respiratory: denies: cough, shortness of breath, wheezing Cardiovascular: denies: chest pain, palpitations Endocrine: no symptoms reported Gastrointestinal: abdominal pain, nausea, vomiting, diarrhea Genitourinary: denies: urgency, dysuria, discharge Musculoskeletal: denies: back pain, joint swelling, arthralgia Skin: denies: rash, lesions Neurological: denies: headache, weakness, paresthesias Psychiatric: denies: anxiety, depression Hematological/Lymphatic: denies: easy bleeding, easy bruising ED Past Medical Hx - Past Medical History Previous Medical History?: Yes Hx Hypertension: Yes Hx Diabetes: Yes Additional medical history: Diabetic - Surgical History Past Surgical History?: Yes Hx Cholecystectomy: Yes Hx Appendectomy: Yes Additional Surgical History: Left leg surgery with instrumentation - Social History Smoking Status: Never Smoker Substance Use Type: None - Medications Home Medications: Home Medications Medication Instructions Recorded Confirmed Last Taken Type Lisinopril [Zestril] 5 mg PO BID 05/15/19 05/15/19 05/13/19 History Promethazine [Phenergan] 25 mg PO Q6HR PRN #10 tab 05/15/19 Unknown Rx Fluconazole (Nf) [Diflucan TAB] 150 mg PO ONCE #1 tablet 06/27/19 Unknown Rx Nitrofurantoin [place]/M-Cryst 100 mg PO Q12HR #14 capsule 06/27/19 Unknown Rx [Macrobid CAP] Acetaminophen/Codeine [Tylenol 1 tab PO Q4HR PRN #12 tablet 02/19/20 Unknown Rx /Codeine # 3 tab] Ondansetron [Zofran ODT TAB] 4 mg PO Q8HR PRN #15 tab.rapdis 11/25/20 Unknown Rx Ibuprofen [Motrin 800 MG tab] 800 mg PO Q8HR PRN #30 tablet 11/29/20 Unknown Rx Insulin Aspart Prot/Aspart(Nf) 15 units SQ QPM #1 vial 03/15/21 Unknown Rx [Novolog Mix 70/30] Insulin Aspart Prot/Aspart(Nf) 30 units SQ QAM #1 vial 03/15/21 Unknown Rx [Novolog Mix 70/30] Nitrofurantoin [place]/M-Cryst 100 mg PO Q12HR #14 capsule 03/15/21 Unknown Rx [Macrobid CAP] Ondansetron [Zofran Odt] 4 mg PO Q8HR #14 tab.rapdis 03/15/21 Unknown Rx Dicyclomine [Bentyl] 20 mg PO Q6H PRN #30 tablet 07/15/21 Unknown Rx Famotidine [Pepcid] 20 mg PO BID #60 tablet 07/15/21 Unknown Rx Omeprazole 40 mg PO DAILY #30 cap 07/15/21 Unknown Rx Ondansetron [Zofran ODT TAB] 4 mg PO Q8HR PRN #20 tab.rapdis 07/15/21 Unknown Rx cephALEXin [Keflex] 500 mg PO Q8HR #30 cap 07/15/21 Unknown Rx ED Physical Exam - General Limitations: No Limitations General appearance: alert, in no apparent distress - Head Head exam: Present: atraumatic, normocephalic, normal inspection - Eye Eye exam: Present: normal appearance, PERRL, EOMI Pupils: Present: normal accommodation - ENT ENT exam: Present: normal exam, normal orophraynx, mucous membranes moist, TM's normal bilaterally, normal external ear exam - Neck Neck exam: Present: normal inspection, full ROM. Absent: tenderness - Respiratory Respiratory exam: Present: normal lung sounds bilaterally. Absent: respiratory distress, wheezes, chest wall tenderness, accessory muscle use, decreased breath sounds - Cardiovascular Cardiovascular Exam: Present: normal rhythm, tachycardia, normal heart sounds. Absent: systolic murmur, diastolic murmur, rubs, gallop - GI/Abdominal GI/Abdominal exam: Present: soft, tenderness (Palpable mild epigastric tenderness), normal bowel sounds. Absent: guarding, hyperactive bowel sounds, hypoactive bowel sounds, organomegaly - Extremities Exam Extremities exam: Present: normal inspection, full ROM, normal capillary refill. Absent: tenderness - Back Exam Back exam: Present: normal inspection, full ROM. Absent: tenderness, CVA tenderness (R), CVA tenderness (L), muscle spasm, paraspinal tenderness, vertebral tenderness - Neurological Exam Neurological exam: Present: alert, oriented X3, CN II-XII intact, normal gait, reflexes normal - Psychiatric Psychiatric exam: Present: normal affect, normal mood, anxious - Skin Skin exam: Present: warm, dry, intact, normal color. Absent: rash ED Course Vital Signs 07/14/21 21:11 Temperature 98.5 F Pulse Rate 110 H Respiratory 18 Rate Blood Pressure 150/100 O2 Sat by Pulse 97 Oximetry ED Medical Decision Making - Lab Data Result diagrams: 07/15/21 00:26 07/15/21 00:26 - Medical Decision Making This is a 36-year-old -[place] female with a history of [id number] diabetes and hypertension who presents to the ED with complaint of acute onset persistent epigastric pain with nausea and vomiting diarrhea for the last 2 days, worse in the last 24 hours. Patient states that she suspects that she may have eaten wrong food and that the symptoms have been persistent since onset and that in the last 24 hours she has noted maybe could be anything down. In the ED, patient is alert and oriented x3 and is not in any distress but tachycardic and afebrile in triage. Patient was treated for pain in the ED and also given antiemetics and normal saline 1 L IV bolus x1. Patient was also treated with antacids in the ED. All lab test results were reviewed and showed acute leukocytosis of 12,200, BUN of 29, hyperglycemia of 316 mg/dL and significant urinary tract infection in urinalysis. Patient also received Rocephin 1 g IV x1 in the ED. On reevaluation, patient felt better, patient discharged home on medications and advised to maintain a clear liquid diet for 12 to 24 hours, take medication as advised and follow-up with her primary care physician 5 to 7 days for reevaluation. Patient was advised return to the ED immediately if symptoms get worse. - Differential Diagnosis Viral gastroenteritis; GERD; gastroparesis; UTI; gastritis; Critical care attestation.: If time is entered above; I have spent that time in minutes in the direct care of this critically ill patient, excluding procedure time. ED Disposition Clinical Impression: Abdominal pain in female patient, Nausea, vomiting and diarrhea, Viral terri roenteritis, Acute urinary tract infection GERD (gastroesophageal reflux disease) Qualifiers: Esophagitis presence: esophagitis presence not specified Qualified Code(s): K21.9 - Gastro-esophageal reflux disease without esophagitis Disposition: 01 HOME / SELF CARE / HOMELESS Is pt being admited?: No Does the pt Need Aspirin: No Condition: Stable Instructions: Abdominal Pain (ED), Viral Gastroenteritis, Adult, [id number], Abdominal Pain, Adult, [id number], Nausea and Vomiting, Adult, Tuug-[id number], Urinary Tract Infection, Adult, Ylri-xx-Lynu, Gastroesophageal Reflux Disease, Adult, Gllr-yd-Bzze Additional Instructions: All lab test results were reviewed and are all nonactionable. Therefore maintain a clear liquid diet for 12 to 24 hours, take medication as advised, drink plenty of fluids and follow-up with your primary care physician in 5 to 7 days for reevaluation. Return to the ED immediately if symptoms get worse. Prescriptions: Dicyclomine [Bentyl] 20 mg PO Q6H PRN #30 tablet PRN Reason: Abdominal pain cephALEXin [Keflex] 500 mg PO Q8HR #30 cap Omeprazole 40 mg PO DAILY #30 cap Famotidine [Pepcid] 20 mg PO BID #60 tablet Ondansetron [Zofran ODT TAB] 4 mg PO Q8HR PRN #20 tab.rapdis PRN Reason: Nausea Referrals: [facility] [Provider Group] - 3-5 Days Forms: Work/School Release Form(ED) Time of Disposition: 05:33 Print Language: PERSIAN
== END 2021-07-15 05:58 | disposition home or self-care (01) ==
LOC: ED 21:06
DX: A08.4 Viral intestinal infection, unspecified (principal); K21.9 Gastro-esophageal reflux disease without esophagitis; N39.0 Urinary tract infection, site not specified; R10.13 Epigastric pain; R11.2 Nausea with vomiting, unspecified; R19.7 Diarrhea, unspecified; I10 Essential (primary) hypertension; E11.9 Type 2 diabetes mellitus without complications; Z90.49 Acquired absence of other specified parts of digestive tract; Z79.899 Other long term (current) drug therapy
CPT/HCPCS: 36415; 80053; 81001; 83690; 84703; 85025; 87086; 96361; 96365; 96375; 99284; J0696; J1200; J2270; J2765; J3490; J7030

== ENCOUNTER 2021-08-06 11:59 | Emergency (ER) | payer MEDICARE ==
[2021-08-06] MEDS ORDERED: SODIUM CHLORIDE 0.9% 1000 ML 1,000 ML IV ONE ×3 (12:45→19:20)
[2021-08-06] MEDS ORDERED: KETOROLAC 30 MG/1 ML INJ IV ONE (12:45)
[2021-08-06] MEDS ORDERED: ONDANSETRON 4 MG/2 ML INJ IV ONE ×2 (12:45→17:00)
[2021-08-06 13:29] LABS: Basophils # (Auto) 0.1 K/mm3 (0.0-0.1); Basophils % (Auto) 0.6 % (0.0-1.8); Eosinophils % (Auto) 0.3 % (0.0-4.3); Hematocrit 38.8 % (30.3-42.9); Hemoglobin 11.8 gm/dl (10.1-14.3); Lymphocytes # (Auto) 2.7 K/mm3 (1.2-5.4); Lymphocytes % (Auto) 26.2 % (13.4-35.0); Mean Corpuscular HGB Conc 30 % (30-34); Mean Corpuscular Volume 74 fl (79-97); Monocytes # (Auto) 0.7 K/mm3 (0.0-0.8); Monocytes % (Auto) 7.3 % (0.0-7.3); Platelet Count 503 K/mm3 (140-440); Red Blood Count 5.28 M/mm3 (3.65-5.03); Red Cell Distribution Width 19.9 % (13.2-15.2)
[2021-08-06 13:32] LABS: Alanine Aminotransferase 10 units/L (7-56); Albumin 3.9 g/dL (3.9-5); BUN/Creatinine Ratio 26; Blood Urea Nitrogen 29 mg/dL (7-17); Calcium 9.8 mg/dL (8.4-10.2); Hemolysis Index 2
--- NOTE | 2021-08-06 13:38 | Emergency Department Report ---
<JUDY ASHTON - Last Filed: 08/06/21 14:45> ED Abdominal Pain HPI - General Chief Complaint: Abdominal Pain Stated Complaint: NAUSEA/VOMITING/DIARRHEA Time Seen by Provider: 08/06/21 12:11 Source: EMS Mode of arrival: Stretcher Limitations: No Limitations - History of Present Illness Initial Comments: Patient is a 36-year-old female presenting to ED with complaint of nausea, vomiting and generalized cramping abdominal pain for the past few days. She denies fever or chills. Severity scale (0 -10): 0 - Related Data Home Medications Medication Instructions Recorded Confirmed Last Taken Lisinopril [Zestril] 5 mg PO BID 05/15/19 05/15/19 05/13/19 Previous Rx's Medication Instructions Recorded Last Taken Type Fluconazole (Nf) [Diflucan TAB] 150 mg PO ONCE #1 tablet 06/27/19 Unknown Rx Nitrofurantoin [place]/M-Cryst 100 mg PO Q12HR #14 capsule 06/27/19 Unknown Rx [Macrobid CAP] Acetaminophen/Codeine [Tylenol 1 tab PO Q4HR PRN #12 tablet 02/19/20 Unknown Rx /Codeine # 3 tab] Ondansetron [Zofran ODT TAB] 4 mg PO Q8HR PRN #15 tab.rapdis 11/25/20 Unknown Rx Insulin Aspart Prot/Aspart(Nf) 15 units SQ QPM #1 vial 03/15/21 Unknown Rx [Novolog Mix 70/30] Insulin Aspart Prot/Aspart(Nf) 30 units SQ QAM #1 vial 03/15/21 Unknown Rx [Novolog Mix 70/30] Nitrofurantoin [place]/M-Cryst 100 mg PO Q12HR #14 capsule 03/15/21 Unknown Rx [Macrobid CAP] Ondansetron [Zofran Odt] 4 mg PO Q8HR #14 tab.rapdis 03/15/21 Unknown Rx Dicyclomine [Bentyl] 20 mg PO Q6H PRN #30 tablet 07/15/21 Unknown Rx Famotidine [Pepcid] 20 mg PO BID #60 tablet 07/15/21 Unknown Rx Omeprazole 40 mg PO DAILY #30 cap 07/15/21 Unknown Rx Ondansetron [Zofran ODT TAB] 4 mg PO Q8HR PRN #20 tab.rapdis 07/15/21 Unknown Rx cephALEXin [Keflex] 500 mg PO Q8HR #30 cap 07/15/21 Unknown Rx Cefuroxime Axetil [Cefuroxime] 500 mg PO BID #14 tab 08/06/21 Unknown Rx Ibuprofen [Motrin 800 MG tab] 800 mg PO Q8HR PRN #20 tablet 08/06/21 Unknown Rx Ondansetron [Zofran Odt] 4 mg PO Q8HR PRN #20 tab.rapdis 08/06/21 Unknown Rx Promethazine [Phenergan] 25 mg PO Q6HR PRN #20 tab 08/06/21 Unknown Rx Allergies Allergy/AdvReac Type Severity Reaction Status Date / Time No Known Allergies Allergy Verified 04/20/21 12:32 ED Review of Systems Constitutional: denies: chills, fever Respiratory: denies: cough, shortness of breath, wheezing Cardiovascular: denies: chest pain, palpitations Gastrointestinal: abdominal pain, nausea, vomiting. denies: diarrhea Musculoskeletal: denies: back pain, joint swelling, arthralgia Skin: denies: rash, lesions Neurological: denies: headache, weakness, paresthesias Psychiatric: denies: anxiety, depression ED Past Medical Hx - Past Medical History Previous Medical History?: Yes Hx Hypertension: Yes Hx Diabetes: Yes Additional medical history: Diabetic - Surgical History Hx Cholecystectomy: Yes Hx Appendectomy: Yes Additional Surgical History: Left leg surgery with instrumentation - Social History Smoking Status: Never Smoker Substance Use Type: None - Medications Home Medications: Home Medications Medication Instructions Recorded Confirmed Last Taken Type Lisinopril [Zestril] 5 mg PO BID 05/15/19 05/15/19 05/13/19 History Fluconazole (Nf) [Diflucan TAB] 150 mg PO ONCE #1 tablet 06/27/19 Unknown Rx Nitrofurantoin [place]/M-Cryst 100 mg PO Q12HR #14 capsule 06/27/19 Unknown Rx [Macrobid CAP] Acetaminophen/Codeine [Tylenol 1 tab PO Q4HR PRN #12 tablet 02/19/20 Unknown Rx /Codeine # 3 tab] Ondansetron [Zofran ODT TAB] 4 mg PO Q8HR PRN #15 tab.rapdis 11/25/20 Unknown Rx Insulin Aspart Prot/Aspart(Nf) 15 units SQ QPM #1 vial 03/15/21 Unknown Rx [Novolog Mix 70/30] Insulin Aspart Prot/Aspart(Nf) 30 units SQ QAM #1 vial 03/15/21 Unknown Rx [Novolog Mix 70/30] Nitrofurantoin [place]/M-Cryst 100 mg PO Q12HR #14 capsule 03/15/21 Unknown Rx [Macrobid CAP] Ondansetron [Zofran Odt] 4 mg PO Q8HR #14 tab.rapdis 03/15/21 Unknown Rx Dicyclomine [Bentyl] 20 mg PO Q6H PRN #30 tablet 07/15/21 Unknown Rx Famotidine [Pepcid] 20 mg PO BID #60 tablet 07/15/21 Unknown Rx Omeprazole 40 mg PO DAILY #30 cap 07/15/21 Unknown Rx Ondansetron [Zofran ODT TAB] 4 mg PO Q8HR PRN #20 tab.rapdis 07/15/21 Unknown Rx cephALEXin [Keflex] 500 mg PO Q8HR #30 cap 07/15/21 Unknown Rx Cefuroxime Axetil [Cefuroxime] 500 mg PO BID #14 tab 08/06/21 Unknown Rx Ibuprofen [Motrin 800 MG tab] 800 mg PO Q8HR PRN #20 tablet 08/06/21 Unknown Rx Ondansetron [Zofran Odt] 4 mg PO Q8HR PRN #20 tab.rapdis 08/06/21 Unknown Rx Promethazine [Phenergan] 25 mg PO Q6HR PRN #20 tab 08/06/21 Unknown Rx ED Physical Exam - General Limitations: No Limitations General appearance: alert, in no apparent distress - Head Head exam: Present: atraumatic, normocephalic - Respiratory Respiratory exam: Present: normal lung sounds bilaterally. Absent: respiratory distress - Cardiovascular Cardiovascular Exam: Present: regular rate, normal rhythm, normal heart sounds - GI/Abdominal GI/Abdominal exam: Present: soft, tenderness (Mild tenderness across lower abdomen). Absent: distended, guarding, rebound - Rectal Rectal exam: Present: deferred - Neurological Exam Neurological exam: Present: alert, oriented X3 - Psychiatric Psychiatric exam: Present: normal affect, normal mood - Skin Skin exam: Present: warm, dry, intact, normal color ED Medical Decision Making - Lab Data Result diagrams: 08/06/21 12:54 08/06/21 12:54 - Medical Decision Making CBC and CMP grossly unremarkable except for hyperglycemia 406. UA pending. We are currently having difficulty establishing IV access. Consult placed to IV team to establish midline access. Once access obtained we will administer IV fluids, insulin, antiemetics and pain meds. Signed out at shift change to Dr. Liang for follow-up urinalysis and response to treatment. ED Disposition Clinical Impression: UTI (urinary tract infection), Nausea and vomiting, Hyperglycemia due to diabetes mellitus Disposition: HOME / SELF CARE / HOMELESS Condition: Stable Instructions: Urinary Tract Infection, Adult, Hjez-[id number], Hyperglycemia, [id number], Nausea and Vomiting, Adult, Diabetes Mellitus Type 2 in Adults (ED), Abdominal Pain (ED) Additional Instructions: Take the medication as prescribed. Follow-up with your doctor or doctor/clinic provided. Return if symptoms worsen as indicated by your discharge instructions. Prescriptions: Cefuroxime Axetil [Cefuroxime] 500 mg PO BID #14 tab Ibuprofen [Motrin 800 MG tab] 800 mg PO Q8HR PRN #20 tablet PRN Reason: Pain Promethazine [Phenergan] 25 mg PO Q6HR PRN #20 tab PRN Reason: Nausea Ondansetron [Zofran Odt] 4 mg PO Q8HR PRN #20 tab.rapdis PRN Reason: Nausea And Vomiting Referrals: LIVIER LE MD [Staff Physician] - 3-5 Days PRIMARY CARE, [Primary Care Provider] - 3-5 Days <RUFUS LIANG - Last Filed: 08/06/21 22:25> ED Review of Systems ROS: Stated complaint: NAUSEA/VOMITING/DIARRHEA Other details as noted in HPI ED Course Vital Signs 08/06/21 08/06/21 08/06/21 12:11 12:53 14:03 Temperature 98.0 F 98.3 F 98.2 F Pulse Rate 117 H 103 H 104 H Respiratory 10 L 12 19 Rate Blood Pressure 107/60 114/81 133/95 [Left] O2 Sat by Pulse 97 98 99 Oximetry 08/06/21 08/06/21 08/06/21 16:20 16:22 21:08 Temperature 97.9 F Pulse Rate 103 H 107 H Respiratory 14 14 17 Rate Blood Pressure 145/93 176/120 [Left] O2 Sat by Pulse 99 100 Oximetry ED Medical Decision Making - Lab Data Result diagrams: 08/06/21 12:54 08/06/21 12:54 - Radiology Data Radiology results: report reviewed Critical care attestation.: If time is entered above; I have spent that time in minutes in the direct care of this critically ill patient, excluding procedure time. ED Disposition Is pt being admited?: No
[2021-08-06 13:39] LABS: Bilirubin,Direct < 0.2 mg/dL (0-0.2)
[2021-08-06] MEDS ORDERED: INSULIN REGULAR, HUMAN 100 UNITS/1 ML IV ONE ×2 (13:51→17:00)
[2021-08-06] MEDS ORDERED: MORPHINE 4 MG/1 ML INJ IV ONE (15:52)
--- NOTE | 2021-08-06 15:55 | Emergency Department Report ---
Blank Doc - Documentation Documentation: 36-year-old female w diabetes presents to the hospital planing of abdominal pa in, nausea, and vomiting since yesterday. Pain described as sharp and worse with palpation. Pain patient was signed out to me by Dr. Christina to be assessed for improvement after IV medication. Patient had a delay in care secondary to difficulty obtaining IV access. IV nurse had to place a midline. I examined patient and she is tender right upper quadrant on palpation. She has had a previous appendectomy and cholecystectomy. She denies hematemesis, dysuria, or fever. She denies a diagnosis of gastroparesis but suggest that her PMD has suggested as a possibility in the past. Labs significant for dehydration as indicated by elevated BUN with hyperglycemia without anion gap acidosis to suggest DKA. Urine collection pending ct performed CT ABDOMEN AND PELVIS WITH IV CONTRAST INDICATION: n,v diffuse abdominal pain. COMPARISON: None available. TECHNIQUE: Axial CT images were obtained through the abdomen and pelvis after 70 mL Omnipaque [address] scans at this location are performed using CT dose reduction for ALARA by means of automated exposure control. FINDINGS -- ABDOMEN: Lung Bases: No acute abnormality. Liver: Enlarged and somewhat heterogeneous. Gallbladder: Removed. Bile Ducts: Mild dilatation of the intra and extrahepatic biliary ducts that may be at least partially related to prior cholecystectomy the common bile duct measures 10 mm in diameter. Pancreas: Normal. 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 Adrenals: Normal. Right Kidney and Proximal Ureter: Normal. Left Kidney and Proximal Ureter: Normal. Stomach and Bowel: Several small bowel loops appear fluid distended and contains some mucosal thickening.. Lymph Nodes: No significant adenopathy. Aorta: No significant abnormality. IVC: Normal. Additional Findings: None. FINDINGS -- PELVIS: Urinary Bladder and Distal Ureters: Normal. Reproductive Organs: No acute abnormality. Appendix: Not identified. Bowel: No acute abnormality. Free Fluid: None. Lymph Nodes: No significant adenopathy. Additional Findings: None. Skeletal System: Postoperative changes of the left hip. IMPRESSION: 1. Mild diffuse anasarca nonspecific. No significant ascites. 2. Suspect mild diffuse enteritis. There is increased mesenteric stranding identified throughout much of the mesentery. Small free pelvic fluid is nonspecific but could be physiologic. At 8:48 PM patient is demanding to be discharged because her ride is here. IV Rocephin ordered for UTI. Patient declines to receive this medication and prefers to be discharged with a prescription. I instructed nurse to discontinue her midline and discharge patient as requested
--- NOTE | 2021-08-06 18:42 | Cat Scan Report ---
CT ABDOMEN AND PELVIS WITH IV CONTRAST INDICATION: n,v diffuse abdominal pain. COMPARISON: None available. TECHNIQUE: Axial CT images were obtained through the abdomen and pelvis after 70 mL Omnipaque [address] scans at this location are performed using CT dose reduction for ALARA by means of automated ex posure control. FINDINGS -- ABDOMEN: Lung Bases: No acute abnormality. Liver: Enlarged and somewhat heterogeneous. Gallbladder: Removed. Bile Ducts: Mild dilatation of the intra and extrahepatic biliary ducts that m ay be at least partially related to prior cholecystectomy the common bile duct measures 10 mm in diam eter. Pancreas: Normal. 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 Adrenals: Normal. Right Kidney and Proximal Ureter: Normal. Left Kidney and Proximal Ureter: Normal. Stomach and Bowel: Several small bowel loops appear fluid distended and contains some mucosal thicken ing.. Lymph Nodes: No significant adenopathy. Aorta: No significant abnormality. IVC: Normal. Additional Findings: None. FINDINGS -- PELVIS: Urinary Bladder and Distal Ureters: Normal. Reproductive Organs: No acute abnormality. Appendix: Not identified. Bowel: No acute abnormality. Free Fluid: None. Lymph Nodes: No significant adenopathy. Additional Findings: None. Skeletal System: Postoperative changes of the left hip. IMPRESSION: 1. Mild diffuse anasarca nonspecific. No significant ascites. 2. Suspect mild diffuse enteritis. There is increased mesenteric stranding identified throughout much of the mesentery. Small free pelvic fluid is nonspecific but could be physiologic. Signer Name: Celso Castellano MD Signed: 08/06/2021 6:37 PM Workstation Name: [id number]
[2021-08-06 19:43] LABS: Bilirubin,Urine NEG (Negative); Blood,Urine LG (Negative); Color,Urine Yellow (Yellow)
[2021-08-06 20:20] LABS: Bacteria,Urine 2+ /HPF (Negative); Mucus,Urine 1+ /HPF
[2021-08-06] MEDS ORDERED: cefTRIAXone/NS 1 GM/50 ML 1 GM/50 ML BAG IV ONE (20:37)
[2021-08-06 21:09] VITALS: BP 176/120
== END 2021-08-06 21:09 | disposition home or self-care (01) ==
LOC: ED 11:59
DX: N39.0 Urinary tract infection, site not specified (principal); E11.65 Type 2 diabetes mellitus with hyperglycemia; R11.2 Nausea with vomiting, unspecified; I10 Essential (primary) hypertension; Z90.89 Acquired absence of other organs; Z98.890 Other specified postprocedural states
CPT/HCPCS: 36415; 74177; 80048; 80076; 81001; 82962; 83690; 84703; 85025; 87086; 96361; 96374; 96375; 99284; J2270; J2405; J7030; Q9967; J1815

== ENCOUNTER 2021-09-01 14:01 | Emergency (ER) | payer MEDICARE ==
[2021-09-01 14:09] VITALS: BP 125/84
[2021-09-01 15:15] LABS: Hemoglobin 11.6 gm/dl (10.1-14.3); Mean Corpuscular HGB Conc 33 % (30-34); Mean Corpuscular Volume 73 fl (79-97); Mean Platelet Volume 7.8 fl (6-12); Platelet Count 286 K/mm3 (140-440); Red Blood Count 4.81 M/mm3 (3.65-5.03); Red Cell Distribution Width 19.6 % (13.2-15.2)
[2021-09-01 15:20] LABS: BUN/Creatinine Ratio 26; Blood Urea Nitrogen 21 mg/dL (7-17); Calcium 9.3 mg/dL (8.4-10.2)
[2021-09-01 15:21] LABS: Alanine Aminotransferase 11 units/L (7-56); Albumin 3.7 g/dL (3.9-5); Hemolysis Index 3
[2021-09-01] MEDS ORDERED: POTASSIUM CHLORIDE ER 20 MEQ TAB PO ONE (17:56)
[2021-09-01] MEDS ORDERED: MORPHINE 4 MG/1 ML INJ IV ONE (17:56)
[2021-09-01] MEDS ORDERED: ONDANSETRON 4 MG/2 ML INJ IV ONE (17:56)
--- NOTE | 2021-09-01 19:36 | Emergency Department Report ---
<MERI DANIELSON - Last Filed: 09/01/21 23:06> ED Abdominal Pain HPI - General Chief Complaint: Abdominal Pain Stated Complaint: ABD PAIN - Related Data Home Medications Medication Instructions Recorded Confirmed Last Taken Lisinopril [Zestril] 5 mg PO BID 05/15/19 05/15/19 05/13/19 Previous Rx's Medication Instructions Recorded Last Taken Type Fluconazole (Nf) [Diflucan TAB] 150 mg PO ONCE #1 tablet 06/27/19 Unknown Rx Nitrofurantoin Casey/M-Cryst 100 mg PO Q12HR #14 capsule 06/27/19 Unknown Rx [Macrobid CAP] Acetaminophen/Codeine [Tylenol 1 tab PO Q4HR PRN #12 tablet 02/19/20 Unknown Rx /Codeine # 3 tab] Ondansetron [Zofran ODT TAB] 4 mg PO Q8HR PRN #15 tab.rapdis 11/25/20 Unknown Rx Insulin Aspart Prot/Aspart(Nf) 15 units SQ QPM #1 vial 03/15/21 Unknown Rx [Novolog Mix 70/30] Insulin Aspart Prot/Aspart(Nf) 30 units SQ QAM #1 vial 03/15/21 Unknown Rx [Novolog Mix 70/30] Nitrofurantoin Casey/M-Cryst 100 mg PO Q12HR #14 capsule 03/15/21 Unknown Rx [Macrobid CAP] Ondansetron [Zofran Odt] 4 mg PO Q8HR #14 tab.rapdis 03/15/21 Unknown Rx Dicyclomine [Bentyl] 20 mg PO Q6H PRN #30 tablet 07/15/21 Unknown Rx Famotidine [Pepcid] 20 mg PO BID #60 tablet 07/15/21 Unknown Rx Omeprazole 40 mg PO DAILY #30 cap 07/15/21 Unknown Rx Ondansetron [Zofran ODT TAB] 4 mg PO Q8HR PRN #20 tab.rapdis 07/15/21 Unknown Rx cephALEXin [Keflex] 500 mg PO Q8HR #30 cap 07/15/21 Unknown Rx Cefuroxime Axetil [Cefuroxime] 500 mg PO BID #14 tab 08/06/21 Unknown Rx Ibuprofen [Motrin 800 MG tab] 800 mg PO Q8HR PRN #20 tablet 08/06/21 Unknown Rx Ondansetron [Zofran Odt] 4 mg PO Q8HR PRN #20 tab.rapdis 08/06/21 Unknown Rx Promethazine [Phenergan] 25 mg PO Q6HR PRN #20 tab 08/06/21 Unknown Rx Ibuprofen [Motrin 800 MG tab] 800 mg PO Q8HR PRN #30 tablet 09/01/21 Unknown Rx cephALEXin [Keflex] 500 mg PO Q12HR 7 Days #14 cap 09/01/21 Unknown Rx Allergies Allergy/AdvReac Type Severity Reaction Status Date / Time No Known Allergies Allergy Verified 09/01/21 14:09 ED Past Medical Hx - Medications Home Medications: Home Medications Medication Instructions Recorded Confirmed Last Taken Type Lisinopril [Zestril] 5 mg PO BID 05/15/19 05/15/19 05/13/19 History Fluconazole (Nf) [Diflucan TAB] 150 mg PO ONCE #1 tablet 06/27/19 Unknown Rx Nitrofurantoin Casey/M-Cryst 100 mg PO Q12HR #14 capsule 06/27/19 Unknown Rx [Macrobid CAP] Acetaminophen/Codeine [Tylenol 1 tab PO Q4HR PRN #12 tablet 02/19/20 Unknown Rx /Codeine # 3 tab] Ondansetron [Zofran ODT TAB] 4 mg PO Q8HR PRN #15 tab.rapdis 11/25/20 Unknown Rx Insulin Aspart Prot/Aspart(Nf) 15 units SQ QPM #1 vial 03/15/21 Unknown Rx [Novolog Mix 70/30] Insulin Aspart Prot/Aspart(Nf) 30 units SQ QAM #1 vial 03/15/21 Unknown Rx [Novolog Mix 70/30] Nitrofurantoin Casey/M-Cryst 100 mg PO Q12HR #14 capsule 03/15/21 Unknown Rx [Macrobid CAP] Ondansetron [Zofran Odt] 4 mg PO Q8HR #14 tab.rapdis 03/15/21 Unknown Rx Dicyclomine [Bentyl] 20 mg PO Q6H PRN #30 tablet 07/15/21 Unknown Rx Famotidine [Pepcid] 20 mg PO BID #60 tablet 07/15/21 Unknown Rx Omeprazole 40 mg PO DAILY #30 cap 07/15/21 Unknown Rx Ondansetron [Zofran ODT TAB] 4 mg PO Q8HR PRN #20 tab.rapdis 07/15/21 Unknown Rx cephALEXin [Keflex] 500 mg PO Q8HR #30 cap 07/15/21 Unknown Rx Cefuroxime Axetil [Cefuroxime] 500 mg PO BID #14 tab 08/06/21 Unknown Rx Ibuprofen [Motrin 800 MG tab] 800 mg PO Q8HR PRN #20 tablet 08/06/21 Unknown Rx Ondansetron [Zofran Odt] 4 mg PO Q8HR PRN #20 tab.rapdis 08/06/21 Unknown Rx Promethazine [Phenergan] 25 mg PO Q6HR PRN #20 tab 08/06/21 Unknown Rx Ibuprofen [Motrin 800 MG tab] 800 mg PO Q8HR PRN #30 tablet 09/01/21 Unknown Rx cephALEXin [Keflex] 500 mg PO Q12HR 7 Days #14 cap 09/01/21 Unknown Rx ED Medical Decision Making - Lab Data Result diagrams: 09/01/21 14:27 09/01/21 14:27 - Radiology Data CT ABDOMEN AND PELVIS WITH CONTRAST HISTORY: ABDOMINAL PAIN - N/V/D COMPARISON: 08/06/2021 TECHNIQUE: Routine abdominal and pelvic CT exam performed following intravenous contrast administration.. All CT scans at this location are performed using CT dose reduction for ALARA by means of automated exposure control. FINDINGS: CT ABDOMEN: Lung Bases: No significant abnormality. Liver: No significant abnormality. Biliary: Gallbladder is surgically absent. Spleen: No significant abnormality. Unenlarged. Pancreas: No significant abnormality. Adrenals: No significant abnormality. Kidneys: No significant abnormality. Lymphatics: No lymphadenopathy. Vasculature: No significant abnormality. Bowel/Peritoneum: No significant abnormality. No free air. No free fluid. CT PELVIC: : Small amount free fluid in the pelvis. Lymphatics: No lymphadenopathy. Osseous Structures: No aggressive appearing osseous lesions. Additional Findings: None IMPRESSION: 1. No acute findings. Signer Name: Hollis Cheung MD Signed: 09/01/2021 9:39 PM Workstation Name: [id number] Transcribed By: ASHER Dictated By: Hollis Cheung MD Electronically Authenticated By: Hollis Cheung MD Signed Date/Time: 09/01/212138 DD/ 37 TD/TT: Print - Medical Decision Making CT normal. Symptoms are improved with medications given in ED. Patient will be DC'd to home with prescriptions for UTI. Patient will continue to hydrate and follow-up with primary care doctor in 2 to 3 days. Patient verbalized agreement and understanding with discharge plan. Patient DC'd home in stable condition at this time. ED Disposition Clinical Impression: Abdominal pain in female patient, Nausea, vomiting and diarrhea, Acute urinary tract infection UTI (urinary tract infection) Qualifiers: Urinary tract infection type: acute cystitis Hematuria presence: without hemat uria Qualified Code(s): N30.00 - Acute cystitis without hematuria Disposition: HOME / SELF CARE / HOMELESS Condition: Stable Instructions: Nausea and Vomiting, Adult, [id number], Urinary Tract Infection, Adult, [id number], Abdominal Pain, Adult, [id number], Diarrhea, Adult, [id number], Abdominal Pain (ED) Additional Instructions: Medications as prescribed, hydrate as directed. Follow-up with your primary care doctor in 2 to 3 days. Return to emergency department should symptoms worsen. Prescriptions: cephALEXin [Keflex] 500 mg PO Q12HR 7 Days #14 cap Ibuprofen [Motrin 800 MG tab] 800 mg PO Q8HR PRN #30 tablet PRN Reason: pain Referrals: PRIMARY CARE, [Primary Care Provider] - 3-5 Days Print Language: WOLOF <SARAH GUERRIER - Last Filed: 09/05/21 06:58> ED Abdominal Pain HPI - General Source: patient, EMS Mode of arrival: Ambulatory Limitations: No Limitations - History of Present Illness Initial Comments: Patient is a 36-year-old -[place] female with a history of hypertension and [id number] diabetes who presents to the ED with complaint of acute onset persistent diffuse abdominal pain that radiates to the periumbilical area, nausea, vomiting and diarrhea for the last 4 days. Patient states that she has not been able to keep anything down in the last 2 days because of persistent nausea and vomiting. Patient denies dizziness, syncope, chest pain, shortness of breath, fever, chills, dysuria, urinary frequency and urgency, vaginal bleeding, vaginal discharge, cough, sore throat, headache or change in vision. Complaint: abdominal pain, other (Nausea and vomiting and diarrhea) -: Sudden, days(s) (4) Location: diffuse, periumbilical Radiation: none Severity: severe Severity scale (0 -10): 10 Quality: cramping, sharp Consistency: constant Improves With: nothing Worsens With: nothing Associated Symptoms: denies other symptoms, nausea, vomiting, diarrhea ED Review of Systems ROS: Stated complaint: ABD PAIN Other details as noted in HPI Constitutional: denies: chills, fever Eyes: denies: eye pain, eye discharge, vision change ENT: denies: ear pain, throat pain Respiratory: denies: cough, shortness of breath, wheezing Cardiovascular: denies: chest pain, palpitations Endocrine: no symptoms reported Gastrointestinal: abdominal pain, nausea, vomiting, diarrhea Genitourinary: denies: urgency, dysuria, discharge Musculoskeletal: denies: back pain, joint swelling, arthralgia Skin: denies: rash, lesions Neurological: denies: headache, weakness, paresthesias Psychiatric: denies: anxiety, depression Hematological/Lymphatic: denies: easy bleeding, easy bruising ED Past Medical Hx - Past Medical History Hx Hypertension: Yes Hx Diabetes: Yes Hx Deep Vein Thrombosis: No Additional medical history: Diabetic - Surgical History Hx Pacemaker: No Hx Internal Defibrillator: No Hx Cholecystectomy: Yes Hx Appendectomy: Yes Additional Surgical History: Left leg surgery with instrumentation - Social History Smoking Status: Never Smoker Substance Use Type: None ED Physical Exam - General Limitations: No Limitations General appearance: alert, in no apparent distress - Head Head exam: Present: atraumatic, normocephalic, normal inspection - Eye Eye exam: Present: normal appearance, PERRL, EOMI Pupils: Present: normal accommodation - ENT ENT exam: Present: normal exam, normal orophraynx, mucous membranes moist, TM's normal bilaterally, normal external ear exam - Neck Neck exam: Present: normal inspection, full ROM. Absent: tenderness - Respiratory Respiratory exam: Present: normal lung sounds bilaterally. Absent: respiratory distress, wheezes, rales, rhonchi, chest wall tenderness, accessory muscle use, decreased breath sounds - Cardiovascular Cardiovascular Exam: Present: normal rhythm, tachycardia, normal heart sounds. Absent: systolic murmur, diastolic murmur, rubs, gallop - GI/Abdominal GI/Abdominal exam: Present: soft, tenderness (Palpable diffuse abdominal ten derness), normal bowel sounds. Absent: guarding, rebound, hyperactive bowel sounds, hypoactive bowel sounds, organomegaly - Extremities Exam Extremities exam: Present: normal inspection, full ROM, normal capillary refill. Absent: tenderness - Back Exam Back exam: Present: normal inspection, full ROM. Absent: tenderness, CVA tenderness (R), CVA tenderness (L), muscle spasm, paraspinal tenderness, vertebral tenderness - Neurological Exam Neurological exam: Present: alert, oriented X3, CN II-XII intact, normal gait, reflexes normal - Psychiatric Psychiatric exam: Present: normal affect, normal mood - Skin Skin exam: Present: warm, dry, intact, normal color. Absent: rash ED Course Vital Signs 09/01/21 14:02 Temperature 98.2 F Pulse Rate 117 H Respiratory 18 Rate Blood Pressure 125/84 [Left] O2 Sat by Pulse 99 Oximetry ED Medical Decision Making - Lab Data Result diagrams: 09/01/21 14:27 09/01/21 14:27 - Radiology Data Radiology results: report reviewed, image reviewed - Medical Decision Making This is a 36-year-old -I[place] female with a history of hypertension and [id number] diabetes who presents to the ED with complaint of acute onset persistent diffuse abdominal pain that radiates to the periumbilical area, nausea, vomiting and diarrhea for the last 4 days. Patient states that she has not been able to keep anything down in the last 2 days because of persistent nausea and vomiting. In the ED, patient is alert and oriented x3 and is not in any distress. Patient was treated for pain in the ED and also received antiemetics in the ED. Lab test results were reviewed and showed mild hypokalemia 3.2 mmol/L. Urinalysis showed significant urinary tract infection. Patient was treated in the ED with Rocephin 1 g IV x1. Abdomen pelvis CT scan with IV contrast - Differential Diagnosis Appendicitis; pancreatitis; UTI; GERD; SBO; ovarian cyst; colitis; Critical care attestation.: If time is entered above; I have spent that time in minutes in the direct care of this critically ill patient, excluding procedure time. ED Disposition Is pt being admited?: No Does the pt Need Aspirin: No
[2021-09-01 19:58] LABS: Mucus,Urine 3+ /HPF
[2021-09-01 20:00] LABS: RBC,Urine > 182.0 /HPF (0.0-6.0); WBC,Urine > 182.0 /HPF (0.0-6.0)
[2021-09-01 20:36] LABS: Bilirubin,Urine Negative (Negative); Color,Urine Yellow (Yellow)
[2021-09-01 20:37] LABS: Blood,Urine Negative (Negative); Urobilinogen,Urine 0.2 mg/dL (<2.0)
[2021-09-01] MEDS ORDERED: cefTRIAXone/NS 1 GM/50 ML 1 GM/50 ML BAG IV ONE (21:11)
--- NOTE | 2021-09-01 21:44 | Cat Scan Report ---
CT ABDOMEN AND PELVIS WITH CONTRAST HISTORY: ABDOMINAL PAIN - N/V/D COMPARISON: 08/06/2021 TECHNIQUE: Routine abdominal and pelvic CT exam performed following intravenous contrast administrat ion.. All CT scans at this location are performed using CT dose reduction for ALARA by means of autom ated exposure control. FINDINGS: CT ABDOMEN: Lung Bases: No significant abnormality. Liver: No significant abnormality. Biliary: Gallbladder is surgically absent. Spleen: No significant abnormality. Unenlarged. Pancreas: No significant abnormality. Adrenals: No significant abnormality. Kidneys: No significant abnormality. Lymphatics: No lymphadenopathy. Vasculature: No significant abnormality. Bowel/Peritoneum: No significant abnormality. No free air. No free fluid. CT PELVIC: : Small amount free fluid in the pelvis. Lymphatics: No lymphadenopathy. Osseous Structures: No aggressive appearing osseous lesions. Additional Findings: None IMPRESSION: 1. No acute findings. Signer Name: Hollis Cheung MD Signed: 09/01/2021 9:39 PM Workstation Name: [id number]
== END 2021-09-01 23:27 | disposition home or self-care (01) ==
LOC: ED 14:01
DX: R10.9 Unspecified abdominal pain (principal); I10 Essential (primary) hypertension; E11.9 Type 2 diabetes mellitus without complications; Z90.49 Acquired absence of other specified parts of digestive tract; Z79.899 Other long term (current) drug therapy
CPT/HCPCS: 36415; 74177; 80053; 81001; 83690; 84703; 85027; 96365; 96375; 99284; J0696; J2270; J2405; Q9967

== ENCOUNTER 2021-09-19 20:06 | Emergency (ER) | payer MEDICARE ==
[2021-09-19 21:22] VITALS: BP 124/90
== END 2021-09-20 05:00 | disposition left against medical advice (07) ==
LOC: ED 20:06
DX: R10.9 Unspecified abdominal pain (principal); Z53.21 Procedure and treatment not carried out due to patient leaving prior to being seen by health care provider